=== PATIENT | female | born 1975 | race Caucasian/White ===

== ENCOUNTER → 2017-06-01 | Outpatient (CLI) | payer OTHER ==
[~2017-06-01] MED LIST: ALPR1T PO; AMPH20TA2 PO; BISO5TAB8 PO; ESCI10TA PO; HYDR-3454 PO; OXYC-197 PO; PRD20T PO; TRAM50TA2 PO
--- NOTE | 2017-06-01 18:21 | Diagnostic Imaging Report ---
EXAMINATION: Three views of the cervical spine. INDICATION: Neck pain. FINDINGS: There is reversal of the lordotic curvature in the cervical spine. The vertebral body heights are preserved. There is mild disc height loss at the C4/5 and C5/6 levels. There are mild anterior osteophytes noted at these levels. No significant posterior osteophyte is seen. There is normal alignment of the lateral masses of C1 and C2 suggested on the open-mouth odontoid view on the left. The right lateral masses not well seen. IMPRESSION: Disc degenerative changes at the C5/6 and C6/7 levels. Dictated by: Dictated on workstation # [id number]
== END ==
LOC: RAD 09:29
PROVIDERS: ATTEND Surgery
DX: M54.2 Cervicalgia (principal); M54.5 Low back pain
CPT/HCPCS: 72040

== ENCOUNTER 2017-07-30 13:20 | Inpatient (IN) | payer MEDICAID, OTHER ==
[2017-07-30] VITALS (9 sets, daily range): BP systolic 87–101; BP diastolic 61–70
[~2017-07-30] VITALS: Ht 157.5 cm; Wt 65.2 kg
--- OUTSIDE RECORDS SUMMARY | 2017-07-30 13:25 | XMS REPORT ---
Author Author RAYMOND SIMENTAL [facility] Address [address] [place] [address] Care Team Providers Care Environmental Protection Inspector Name Role Phone RAYMOND SIMENTAL Unavailable PROBLEMS Type Condition ICD9-CM Code [id number] Code Onset Dates Condition Status SNOMED Code Problem Recurrent major depressive disorder, in partial remission F33.41 Active 10373420 Problem Episode of recurrent major depressive disorder, unspecified depression episode severity F33.9 Active 985684982 Problem Attention deficit hyperactivity disorder (ADHD), predominantly inattentive type F90.0 Active 14064181 Problem Adderall use disorder, moderate F15.20 Active 90335438 ALLERGIES Substance Reaction Event Type Date Status N.K.D.A. Unknown Non Drug Allergy Oct, Unknown SOCIAL HISTORY No smoking Hx information available PLAN OF CARE Activity Details Follow Up 4 Weeks Reason:mood disorder VITAL SIGNS Height 62 in 2016-10-31 Weight 149.0 lbs 2016-10-31 Temperature 98.4 degrees Fahrenheit 2016-10-31 Heart Rate 72 bpm 2016-10-31 Respiratory Rate 18 2016-10-31 Oximetry 99 % 2016-10-31 BMI 27.25 kg/m2 2016-10-31 Blood pressure systolic 108 mmHg 2016-10-31 Blood pressure diastolic 74 mmHg 2016-10-31 MEDICATIONS Medication Instructions Dosage Frequency Start Date End Date Duration Status [place] Carbonate 300 MG Orally 2 times a day 1 capsule 12h Oct, 30 day(s) Active Biotene Dry Mouth Care Active Ativan 2 MG Orally Once a day 1 tablet at bedtime as needed 24h Oct, Active Adderall 30 MG Orally Once a day 1 tablet in the morning 24h Active Vitamin E 400 UNIT Orally 3 times a day 1 capsule 8h Active Percocet 5-325 MG Orally 3 times a day 1 tablet as needed 8h Oct, Active Hydrochlorothiazide 25 MG Orally Once a day 1 tablet 24h Active Cymbalta 30 MG Orally Once a day 1 capsule 24h Oct, 07 days Active Cymbalta 60 mg Orally Once a day 1 capsule 24h Oct, 30 day(s) Active Potassium 1 tab Active Vitamin D3 5000 UNIT Orally Once a day 1 tablet 24h Active Vitamin B12 1000 MCG Orally Once a day 1 tablet 24h Active RESULTS No Results PROCEDURES Procedure Date Ordered Related Diagnosis Body Site MEASURE BLOOD OXYGEN LEVEL Oct 31, 2016 Office Visit, Est Pt., Level 3 Oct 31, 2016 IMMUNIZATIONS No Known Immunizations
--- OUTSIDE RECORDS SUMMARY | 2017-07-30 13:25 | XMS REPORT ---
Author Author RITA RICCI [facility] Address [address] [place] [address] Care Team Providers Care Renovator Machine Operator Name Role Phone RITA RICCI Unavailable PROBLEMS Type Condition ICD9-CM Code [id number] Code Onset Dates Condition Status SNOMED Code Problem Recurrent major depressive disorder, in partial remission F33.41 Active 91807576 Problem Episode of recurrent major depressive disorder, unspecified depression episode severity F33.9 Active 201179893 Problem Attention deficit hyperactivity disorder (ADHD), predominantly inattentive type F90.0 Active 97937371 Problem Adderall use disorder, moderate F15.20 Active 98475645 ALLERGIES Unknown Allergies SOCIAL HISTORY No smoking Hx information available PLAN OF CARE VITAL SIGNS MEDICATIONS Unknown Medications RESULTS No Results PROCEDURES Procedure Date Ordered Related Diagnosis Body Site FLUARIX QUAD P-FREE 3 AND UP .50 2015Nov 07, 2016 SINGLE IMMUNIZATION ADMIN Nov 07, 2016 IMMUNIZATIONS Vaccine Route Administration Date Status FLUARIX QUAD P-FREE 3 AND UP .50 2015 IM Intramuscular Nov 07, 2016 Administered
--- OUTSIDE RECORDS SUMMARY | 2017-07-30 13:25 | XMS REPORT ---
Author Author RAYMOND SIMENTAL [facility] Address [address] [place] [address] Care Team Providers Care Pipe Bending Machine Operator Name Role Phone RAYMOND SIMENTAL Unavailable PROBLEMS Type Condition ICD9-CM Code [id number] Code Onset Dates Condition Status SNOMED Code Problem Recurrent major depressive disorder, in partial remission F33.41 Active 60907466 Problem Episode of recurrent major depressive disorder, unspecified depression episode severity F33.9 Active 056780108 Problem Attention deficit hyperactivity disorder (ADHD), predominantly inattentive type F90.0 Active 13395854 Problem Adderall use disorder, moderate F15.20 Active 06804813 ALLERGIES Unknown Allergies SOCIAL HISTORY No smoking Hx information available PLAN OF CARE VITAL SIGNS MEDICATIONS Unknown Medications RESULTS No Results PROCEDURES No Known procedures IMMUNIZATIONS No Known Immunizations
--- OUTSIDE RECORDS SUMMARY | 2017-07-30 13:25 | XMS REPORT ---
Author Author RAYMOND SIMENTAL Organization [facility] Address [address] [place] [address] Care Team Providers Care Final Cigar And Box Examiner Name Role Phone RAYMOND SIMENTAL Unavailable PROBLEMS Type Condition ICD9-CM Code NNT56-CU Code Onset Dates Condition Status SNOMED Code Problem Recurrent major depressive disorder, in partial remission F33.41 Active 69518575 Problem Episode of recurrent major depressive disorder, unspecified depression episode severity F33.9 Active 140118696 Problem Attention deficit hyperactivity disorder (ADHD), predominantly inattentive type F90.0 Active 40085988 Problem Adderall use disorder, moderate F15.20 Active 70785543 ALLERGIES Substance Reaction Event Type Date Status N.K.D.A. Unknown Non Drug Allergy Oct, Unknown SOCIAL HISTORY No smoking Hx information available PLAN OF CARE VITAL SIGNS MEDICATIONS Medication Instructions Dosage Frequency Start Date End Date Duration Status Escitalopram Oxalate 20 MG Orally Once a day 0.5 tablet 24h Active Hydrochlorothiazide 25 MG Orally Once a day 1 tablet 24h Active Potassium 1 tab Active Vitamin D3 5000 UNIT Orally Once a day 1 tablet 24h Active Klonopin 1 MG Orally Twice a day prn 1 tablet Active Vitamin E 400 UNIT Orally Once a day 1 capsule 24h Active Biotene Dry Mouth Care Active Bisoprolol Fumarate 5 MG Orally Once a day 1 tablet 24h Active Vitamin B12 1000 MCG Orally Once a day 1 tablet 24h Active RESULTS No Results PROCEDURES No Known procedures IMMUNIZATIONS No Known Immunizations
--- OUTSIDE RECORDS SUMMARY | 2017-07-30 13:25 | XMS REPORT ---
Author Author RAYMOND SIMENTAL [facility] Address [address] [place] [address] Care Team Providers Care Fender Mechanic Apprentice Name Role Phone RAYMOND SIMENTAL Unavailable PROBLEMS Type Condition ICD9-CM Code [id number] Code Onset Dates Condition Status SNOMED Code Problem Recurrent major depressive disorder, in partial remission F33.41 Active 96322561 Problem Episode of recurrent major depressive disorder, unspecified depression episode severity F33.9 Active 032410325 Problem Attention deficit hyperactivity disorder (ADHD), predominantly inattentive type F90.0 Active 16401667 Problem Adderall use disorder, moderate F15.20 Active 81975929 ALLERGIES Unknown Allergies SOCIAL HISTORY No smoking Hx information available PLAN OF CARE VITAL SIGNS MEDICATIONS Unknown Medications RESULTS No Results PROCEDURES No Known procedures IMMUNIZATIONS No Known Immunizations
--- OUTSIDE RECORDS SUMMARY | 2017-07-30 13:25 | XMS REPORT ---
Author Author RAYMOND SIMENTAL [facility] Address [address] [place] [address] Care Team Providers Care Pipe Organ Tuner And Repairer Name Role Phone RAYMOND SIMENTAL Unavailable PROBLEMS Type Condition ICD9-CM Code [id number] Code Onset Dates Condition Status SNOMED Code Problem Recurrent major depressive disorder, in partial remission F33.41 Active 65075509 Problem Episode of recurrent major depressive disorder, unspecified depression episode severity F33.9 Active 517118479 Problem Attention deficit hyperactivity disorder (ADHD), predominantly inattentive type F90.0 Active 04877337 Problem Adderall use disorder, moderate F15.20 Active 68094857 ALLERGIES Unknown Allergies SOCIAL HISTORY No smoking Hx information available PLAN OF CARE VITAL SIGNS MEDICATIONS Medication Instructions Dosage Frequency Start Date End Date Duration Status Adderall 30 MG Orally 2 times a day 1 tablet 12h 09 Oct, 2016 Active RESULTS No Results PROCEDURES No Known procedures IMMUNIZATIONS No Known Immunizations
--- OUTSIDE RECORDS SUMMARY | 2017-07-30 13:25 | XMS REPORT ---
Author Author RAYMOND SIMENTAL [facility] Address [address] [place] [address] Care Team Providers Care Herpetology Teacher Name Role Phone RAYMOND SIMENTAL Unavailable PROBLEMS Type Condition ICD9-CM Code QOR72-EW Code Onset Dates Condition Status SNOMED Code Problem Recurrent major depressive disorder, in partial remission F33.41 Active 42733853 Problem Episode of recurrent major depressive disorder, unspecified depression episode severity F33.9 Active 983077016 Problem Attention deficit hyperactivity disorder (ADHD), predominantly inattentive type F90.0 Active 83473829 Problem Adderall use disorder, moderate F15.20 Active 61853035 ALLERGIES Unknown Allergies SOCIAL HISTORY No smoking Hx information available PLAN OF CARE VITAL SIGNS MEDICATIONS Medication Instructions Dosage Frequency Start Date End Date Duration Status Percocet 5-325 MG Orally 3 times a day 1 tablet as needed 8h Nov, 28 days Active Ativan 2 MG Orally Once a day 1 tablet at bedtime as needed 24h Oct, 28 days Active RESULTS No Results PROCEDURES No Known procedures IMMUNIZATIONS No Known Immunizations
--- OUTSIDE RECORDS SUMMARY | 2017-07-30 13:25 | XMS REPORT ---
Author Author RAYMOND SIMENTAL [facility] Address [address] [place] [address] Care Team Providers Care Turn Supervisor Name Role Phone RAYMOND SIMENTAL Unavailable PROBLEMS Type Condition ICD9-CM Code [id number] Code Onset Dates Condition Status SNOMED Code Problem Recurrent major depressive disorder, in partial remission F33.41 Active 09510994 Problem Episode of recurrent major depressive disorder, unspecified depression episode severity F33.9 Active 407065107 Problem Attention deficit hyperactivity disorder (ADHD), predominantly inattentive type F90.0 Active 85769503 Problem Adderall use disorder, moderate F15.20 Active 09837356 ALLERGIES No Information SOCIAL HISTORY Never Assessed PLAN OF CARE VITAL SIGNS MEDICATIONS Unknown Medications RESULTS No Results PROCEDURES No Known procedures IMMUNIZATIONS No Known Immunizations MEDICAL (GENERAL) HISTORY Type Description Date Medical History anxiety Medical History depression Medical History bipolar disorder Medical History personality disorder Medical History hypertension Medical History tachycardia Medical History Endometriosis/fibroids Surgical History cholecystectomy Surgical History Left Ulnar repair Surgical History Breast Bx- benign Surgical History tonsillectomy Surgical History Exploratory laparoscopic surgery for endometriosis Hospitalization History [facility]
--- OUTSIDE RECORDS SUMMARY | 2017-07-30 13:25 | XMS REPORT ---
Author Author ARTURO MASON Organization [facility] Address [address] [place] [address] Care Team Providers Care Twisting Machine Operator Name Role Phone MARLON ARTURO Unavailable PROBLEMS Type Condition ICD9-CM Code AZT38-CR Code Onset Dates Condition Status SNOMED Code Problem Recurrent major depressive disorder, in partial remission F33.41 Active 31104507 Problem Episode of recurrent major depressive disorder, unspecified depression episode severity F33.9 Active 987242479 Problem Attention deficit hyperactivity disorder (ADHD), predominantly inattentive type F90.0 Active 24284702 Problem Adderall use disorder, moderate F15.20 Active 20304663 ALLERGIES No Known Allergies SOCIAL HISTORY Never Assessed PLAN OF CARE Activity Details Follow Up 4 Weeks Reason: VITAL SIGNS Height 62 in 2016-12-02 Weight 151.1 lbs 2016-12-02 Heart Rate 118 bpm 2016-12-02 Respiratory Rate 20 2016-12-02 BMI 27.63 kg/m2 2016-12-02 Blood pressure systolic 130 mmHg 2016-12-02 Blood pressure diastolic 90 mmHg 2016-12-02 MEDICATIONS Medication Instructions Dosage Frequency Start Date End Date Duration Status Vitamin E 400 UNIT Orally 3 times a day 1 capsule 8h Active PredniSONE 20 mg Orally Once a day 2 tablets 24h Nov, Nov, 05 days Active Vitamin D3 5000 UNIT Orally Once a day 1 tablet 24h Active Vitamin B12 1000 MCG Orally Once a day 1 tablet 24h Active Adderall 30 MG Orally 2 times a day 1 tablet 12h Oct, Active Rozerem 8 MG Orally Once a day 1 tablet at bedtime as needed 24h Nov, 30 days Active Potassium 1 tab Active [place] Carbonate 300 MG Orally 2 times a day 1 capsule 12h Active Percocet 5-325 MG Orally 3 times a day 1 tablet as needed 8h 07 Nov, 2016 28 days Active Neurontin 100 mg Orally Three times a day 1 capsule 8h Nov, Active Ativan 1 MG Orally Once a day 1 tablet at bedtime as needed 24h Oct, 30 days Active Biotene Dry Mouth Care Active Cymbalta 60 mg Orally Once a day 1 capsule 24h Oct, 30 day(s) Active Belsomra 10 mg Orally Once a day 1 tablet at bedtime as needed 24h Nov, 10 days Active Hydrochlorothiazide 25 MG Orally Once a day 1 tablet 24h Active Trazodone HCl 50 MG Orally Once a day 1 tablet at bedtime as needed 24h Nov, 30 day(s) Active RESULTS No Results PROCEDURES No Known [...] Exploratory laparoscopic surgery for endometriosis Hospitalization History [facility]
--- OUTSIDE RECORDS SUMMARY | 2017-07-30 13:25 | XMS REPORT ---
Author Author EMANI CHAVIRA Organization [facility] Address [address] [place] [address] Care Team Providers Care Paper Sales Manager Name Role Phone EMANI CHAVIRA Unavailable PROBLEMS Type Condition ICD9-CM Code [id number] Code Onset Dates Condition Status SNOMED Code Problem Recurrent major depressive disorder, in partial remission F33.41 Active 63396748 Problem Episode of recurrent major depressive disorder, unspecified depression episode severity F33.9 Active 790314136 Problem Attention deficit hyperactivity disorder (ADHD), predominantly inattentive type F90.0 Active 27050341 Problem Adderall use disorder, moderate F15.20 Active 05484261 ALLERGIES No Information SOCIAL HISTORY Never Assessed PLAN OF CARE Activity Details Follow Up 2 Weeks Reason:depression VITAL SIGNS MEDICATIONS Unknown Medications RESULTS No Results PROCEDURES Procedure Date Ordered Result Body Site Psychotherapy, patient &/family, 30 minutes, established patient Dec 19, 2016 IMMUNIZATIONS No Known Immunizations MEDICAL (GENERAL) HISTORY Type Description Date Medical History anxiety Medical History depression Medical History bipolar disorder Medical History personality disorder Medical History hypertension Medical History tachycardia Medical History Endometriosis/fibroids Surgical History cholecystectomy Surgical History Left Ulnar repair Surgical History Breast Bx- benign Surgical History tonsillectomy Surgical History Exploratory laparoscopic surgery for endometriosis Hospitalization History [facility]
--- OUTSIDE RECORDS SUMMARY | 2017-07-30 13:25 | XMS REPORT ---
Author Author RAYMOND SIMENTAL [facility] Address [address] [place] [address] Care Team Providers Care Pond Scaler Name Role Phone RAYMOND SIMENTAL Unavailable PROBLEMS Type Condition ICD9-CM Code [id number] Code Onset Dates Condition Status SNOMED Code Problem Recurrent major depressive disorder, in partial remission F33.41 Active 14972899 Problem Episode of recurrent major depressive disorder, unspecified depression episode severity F33.9 Active 468456265 Problem Attention deficit hyperactivity disorder (ADHD), predominantly inattentive type F90.0 Active 78699583 Problem Adderall use disorder, moderate F15.20 Active 64801697 ALLERGIES No Information SOCIAL HISTORY Never Assessed PLAN OF CARE VITAL SIGNS MEDICATIONS Medication Instructions Dosage Frequency Start Date End Date Duration Status Adderall 30 MG Orally 2 times a day 1 tablet 12h Nov, Active RESULTS No Results PROCEDURES No Known [...] Exploratory laparoscopic surgery for endometriosis Hospitalization History [facility]
--- OUTSIDE RECORDS SUMMARY | 2017-07-30 13:25 | XMS REPORT ---
Author Author RAYMOND SIMENTAL Organization [facility] Address [address] [place] [address] Care Team Providers Care Grades 1 6 Tutor Name Role Phone RAYMOND SIMENTAL Unavailable PROBLEMS Type Condition ICD9-CM Code [id number] Code Onset Dates Condition Status SNOMED Code Problem Recurrent major depressive disorder, in partial remission F33.41 Active 01933137 Problem Episode of recurrent major depressive disorder, unspecified depression episode severity F33.9 Active 909551618 Problem Attention deficit hyperactivity disorder (ADHD), predominantly inattentive type F90.0 Active 07180686 Problem Adderall use disorder, moderate F15.20 Active 96089702 ALLERGIES Unknown Allergies SOCIAL HISTORY No smoking Hx information available PLAN OF CARE VITAL SIGNS MEDICATIONS Unknown Medications RESULTS Name Result Date Reference Range POTASSIUM 2016-11-14 Potassium, Serum 4.8 3.5-5.2 HEP C ANTIBODY 2016-11-14 Hep C Virus Ab <0.1 0.0-0.9 LITHIUM (ESKALITH(R)), SERUM 2016-11-14 [place] (Eskalith(R)), Serum 0.6 0.6-1.4 VITAMIN D, 25-H 2016-11-14 Vitamin D, 25-Hydroxy 38.3 30.0-100.0 HIV ANTIGEN/ANTIBODY 2016-11-14 HIV Screen 4th Generation wRfx Non Reactive Non Reactive PROCEDURES Procedure Date Ordered Related Diagnosis Body Site LAB NOT BILLED BY [facility] Nov 14, 2016 HIV-1 AG W/HIV-1 & HIV-2 AB Nov 14, 2016 VENIPUNCT, ROUTINE* Nov 14, 2016 IMMUNIZATIONS No Known Immunizations
--- OUTSIDE RECORDS SUMMARY | 2017-07-30 13:25 | XMS REPORT ---
Author Author EMANI CHAVIRA Organization [facility] Address [address] [place] [address] Care Team Providers Care Software Reverse Engineer Name Role Phone EMANI CHAVIRA Unavailable PROBLEMS Type Condition ICD9-CM Code WND15-UT Code Onset Dates Condition Status SNOMED Code Problem Recurrent major depressive disorder, in partial remission F33.41 Active 09976785 Problem Episode of recurrent major depressive disorder, unspecified depression episode severity F33.9 Active 201320290 Problem Attention deficit hyperactivity disorder (ADHD), predominantly inattentive type F90.0 Active 98585661 Problem Adderall use disorder, moderate F15.20 Active 24656753 ALLERGIES No Information SOCIAL HISTORY Never Assessed PLAN OF CARE Activity Details Follow Up Next available Reason:depression VITAL SIGNS MEDICATIONS Unknown Medications RESULTS No Results PROCEDURES Procedure Date Ordered Result Body Site Psychotherapy, patient &/family, 30 minutes, established patient January 02, 2017 IMMUNIZATIONS No Known Immunizations MEDICAL (GENERAL) HISTORY Type Description Date Medical History anxiety Medical History depression Medical History bipolar disorder Medical History personality disorder Medical History hypertension Medical History tachycardia Medical History Endometriosis/fibroids Surgical History cholecystectomy Surgical History Left Ulnar repair Surgical History Breast Bx- benign Surgical History tonsillectomy Surgical History Exploratory laparoscopic surgery for endometriosis Hospitalization History [facility]
--- OUTSIDE RECORDS SUMMARY | 2017-07-30 13:25 | XMS REPORT ---
Author Author EMANI CHAVIRA Organization [facility] Address [address] [place] [address] Care Team Providers Care Ore Dressing Engineer Name Role Phone EMANI CHAVIRA Unavailable PROBLEMS Type Condition ICD9-CM Code [id number] Code Onset Dates Condition Status SNOMED Code Problem Recurrent major depressive disorder, in partial remission F33.41 Active 86177982 Problem Episode of recurrent major depressive disorder, unspecified depression episode severity F33.9 Active 029867868 Problem Attention deficit hyperactivity disorder (ADHD), predominantly inattentive type F90.0 Active 33922531 Problem Adderall use disorder, moderate F15.20 Active 74392452 ALLERGIES Unknown Allergies SOCIAL HISTORY No smoking Hx information available PLAN OF CARE Activity Details Follow Up next available Reason:depresson VITAL SIGNS MEDICATIONS Unknown Medications RESULTS No Results PROCEDURES Procedure Date Ordered Related Diagnosis Body Site Psychotherapy, patient &/family, 30 minutes, established patient Nov 07, 2016 IMMUNIZATIONS No Known Immunizations
--- OUTSIDE RECORDS SUMMARY | 2017-07-30 13:25 | XMS REPORT ---
Author Author EMANI CHAVIRA Organization [facility] Address [address] [place] [address] Care Team Providers Care Repairing Calibrator Name Role Phone EMANI CHAVIRA Unavailable PROBLEMS Type Condition ICD9-CM Code [id number] Code Onset Dates Condition Status SNOMED Code Problem Recurrent major depressive disorder, in partial remission F33.41 Active 44289889 Problem Episode of recurrent major depressive disorder, unspecified depression episode severity F33.9 Active 564224840 Problem Attention deficit hyperactivity disorder (ADHD), predominantly inattentive type F90.0 Active 61639274 Problem Adderall use disorder, moderate F15.20 Active 45526462 ALLERGIES No Information SOCIAL HISTORY Never Assessed PLAN OF CARE Activity Details Follow Up Next available Reason:depression VITAL SIGNS MEDICATIONS Unknown Medications RESULTS No Results PROCEDURES Procedure Date Ordered Result Body Site Psychotherapy, patient &/family, 30 minutes, established patient Dec 01, 2016 IMMUNIZATIONS No Known Immunizations MEDICAL (GENERAL) HISTORY Type Description Date Medical History anxiety Medical History depression Medical History bipolar disorder Medical History personality disorder Medical History hypertension Medical History tachycardia Medical History Endometriosis/fibroids Surgical History cholecystectomy Surgical History Left Ulnar repair Surgical History Breast Bx- benign Surgical History tonsillectomy Surgical History Exploratory laparoscopic surgery for endometriosis Hospitalization History [facility]
--- OUTSIDE RECORDS SUMMARY | 2017-07-30 13:25 | XMS REPORT ---
Author Author YESY EID Organization [employer] Address Unknown Phone Unavailable Care Team Providers Care Websphere Architect Name Role Phone YESY EID Unavailable Allergies No Known Allergies Problems Problem Type Condition Code Onset Dates Condition Status Assessment Visit for TB skin test Z11.1 Active Medications No Known Medications Procedures Procedure Coding System Code Date TB INTRADERMAL TEST CPT-4 11854 Jun 15, 2016 Results No Known Results Summary Purpose [employer] Submission
--- OUTSIDE RECORDS SUMMARY | 2017-07-30 13:25 | XMS REPORT ---
Author Author RAYMOND SIMENTAL [facility] Address [address] [place] [address] Care Team Providers Care Program Research Specialist Name Role Phone RAYMOND SIMENTAL Unavailable PROBLEMS Type Condition ICD9-CM Code [id number] Code Onset Dates Condition Status SNOMED Code Problem Recurrent major depressive disorder, in partial remission F33.41 Active 42177107 Problem Episode of recurrent major depressive disorder, unspecified depression episode severity F33.9 Active 260254985 Problem Attention deficit hyperactivity disorder (ADHD), predominantly inattentive type F90.0 Active 52147931 Problem Adderall use disorder, moderate F15.20 Active 06188619 ALLERGIES No Known Allergies SOCIAL HISTORY Never Assessed PLAN OF CARE Activity Details Follow Up 4 Weeks Reason:neuritis VITAL SIGNS Height 62 in 2016-12-01 Weight 151.1 lbs 2016-12-01 Temperature 98.6 degrees Fahrenheit 2016-12-01 Heart Rate 84 bpm 2016-12-01 Respiratory Rate 20 2016-12-01 BMI 27.63 kg/m2 2016-12-01 Blood pressure systolic 130 mmHg 2016-12-01 Blood pressure diastolic 88 mmHg 2016-12-01 MEDICATIONS Medication Instructions Dosage Frequency Start Date End Date Duration Status Cymbalta 60 mg Orally Once a day 1 capsule 24h Oct, 30 day(s) Active Potassium 1 tab Active Hydrochlorothiazide 25 MG Orally Once a day 1 tablet 24h Active Biotene Dry Mouth Care Active [place] Carbonate 300 MG Orally 2 times a day 1 capsule 12h 30 Active Adderall 30 MG Orally 2 times a day 1 tablet 12h Oct, Active PredniSONE 20 mg Orally Once a day 2 tablets 24h Nov, Nov, 05 days Active Vitamin B12 1000 MCG Orally Once a day 1 tablet 24h Active Vitamin E 400 UNIT Orally 3 times a day 1 capsule 8h Active Ativan 2 MG Orally Once a day 1 tablet at bedtime as needed 24h Oct, 28 days Active Neurontin 100 mg Orally Three times a day 1 capsule 8h Nov, Active Vitamin D3 5000 UNIT Orally Once a day 1 tablet 24h Active Percocet 5-325 MG Orally 3 times a day 1 tablet as needed 8h 07 Nov, 2016 28 days Active RESULTS Name Result Date Reference Range AMERITOX 2016-12-01 PROCEDURES Procedure Date Ordered Result Body Site No Charge Dec 01, 2016 IMMUNIZATIONS No Known Immunizations MEDICAL (GENERAL) HISTORY Type Description Date Medical History anxiety Medical History depression Medical History bipolar disorder Medical History personality disorder Medical History hypertension Medical History tachycardia Medical History Endometriosis/fibroids Surgical History cholecystectomy Surgical History Left Ulnar repair Surgical History Breast Bx- benign Surgical History tonsillectomy Surgical History Exploratory laparoscopic surgery for endometriosis Hospitalization History [facility]
--- OUTSIDE RECORDS SUMMARY | 2017-07-30 13:25 | XMS REPORT ---
Author Author EMANI CHAVIRA Organization [facility] Address [address] [place] [address] Care Team Providers Care Circular Saw Filer Name Role Phone EMANI CHAVIRA Unavailable PROBLEMS Type Condition ICD9-CM Code [id number] Code Onset Dates Condition Status SNOMED Code Problem Recurrent major depressive disorder, in partial remission F33.41 Active 36419996 Problem Episode of recurrent major depressive disorder, unspecified depression episode severity F33.9 Active 240435167 Problem Attention deficit hyperactivity disorder (ADHD), predominantly inattentive type F90.0 Active 35185424 Problem Adderall use disorder, moderate F15.20 Active 75406779 ALLERGIES No Information SOCIAL HISTORY Never Assessed [...]
--- OUTSIDE RECORDS SUMMARY | 2017-07-30 13:26 | XMS REPORT | Continuity of Care Document ---
Author Author [facility] Organization [facility] Address Unknown Phone Unavailable Allergies Active Description Code Type Severity Reaction Onset Reported/Identified Relationship to Patient Clinical Status Yes No Known Drug Allergies [id number] Drug Allergy Unknown N/ A 09/23/2013 Medications Problems Date Dx Coded Attending Type Code Diagnosis Diagnosed By 09/24/2013 ROBERTO SULLIVAN MD Ot 300.00 ANXIETY STATE NOS 09/24/2013 ROBERTO SULLIVAN MD Ot 314.00 ATTN DEFIC NONHYPERACT 09/24/2013 ROBERTO SULLIVAN MD Ot 427.89 CARDIAC DYSRHYTHMIAS NEC 09/24/2013 ROBERTO SULLIVAN MD Ot 724.5 BACKACHE NOS 09/24/2013 ROBERTO SULLIVAN MD Ot 729.2 NEURALGIA/NEURITIS NOS 09/24/2013 ROBERTO SULLIVAN MD Ot 780.2 SYNCOPE AND COLLAPSE 09/24/2013 ROBERTO SULLIVAN MD Ot 780.8 GENERALIZED HYPERHIDROSIS 09/24/2013 ROBERTO SULLIVAN MD Ot 786.01 HYPERVENTILATION 09/24/2013 ROBERTO SULLIVAN MD Ot 786.50 CHEST PAIN NOS 12/23/2013 BRENTON ZAIDI Ot 785.1 PALPITATIONS 08/02/2015 Ot K80.10 CALCULUS OF GALLBLADDER W CHRONIC CHOLEC 08/02/2015 Ot R10.13 EPIGASTRIC PAIN 08/04/2015 JOLIE ALBERT MD Ot K80.10 CALCULUS OF GALLBLADDER W CHRONIC CHOLEC 08/05/2015 Ot 704.00 08/05/2015 Ot 709.09 08/05/2015 JOSE YBARRA MD Ot 724.2 08/05/2015 Ot 785.1 08/05/2015 Ot 704.00 08/05/2015 Ot 709.09 08/05/2015 JOSE YBARRA MD Ot 724.2 08/05/2015 Ot 785.1 03/31/2016 Ot 704.00 ALOPECIA NOS 03/31/2016 Ot 709.09 OTHER DYSCHROMIA 03/31/2016 JOSE YBARRA MD Ot 724.2 LUMBAGO 03/31/2016 Ot 785.1 PALPITATIONS 04/06/2016 GERARDO ALFREDO Ot M25.522 PAIN IN LEFT ELBOW 04/06/2016 GERARDO ALFREDO Ot M54.12 RADICULOPATHY, CERVICAL REGION 04/07/2016 GERARDO ALFREDOP Ot M25.522 PAIN IN LEFT ELBOW 04/07/2016 GERARDO ALFREDO ORTHOPEDIC SHOE MAKER Ot M54.12 RADICULOPATHY, CERVICAL REGION 04/08/2016 GERARDO ALFREDO ORTHOPEDIC SHOE MAKER Ot M25.522 PAIN IN LEFT ELBOW 04/08/2016 GERARDO ALFREDO ORTHOPEDIC SHOE MAKER Ot M54.12 RADICULOPATHY, CERVICAL REGION 07/04/2016 GERARDO ALFREDOP Ot M25.522 PAIN IN LEFT ELBOW 07/04/2016 GERARDO ALFREDOP Ot M54.12 RADICULOPATHY, CERVICAL REGION 06/01/2017 Ot 704.00 ALOPECIA NOS 06/01/2017 Ot 709.09 OTHER DYSCHROMIA 06/01/2017 JOSE YBARRA MD Ot 724.2 LUMBAGO 06/01/2017 Ot 785.1 PALPITATIONS 06/01/2017 GERARDO ALFREDOP Ot M25.522 PAIN IN LEFT ELBOW 06/01/2017 GERARDO ALFREDOP Ot M54.12 RADICULOPATHY, CERVICAL REGION 06/02/2017 ERASMO HOLCOMB MD (DDU) Ot M54.2 CERVICALGIA 06/02/2017 ERASMO HOLCOMB MD (DDU) Ot M54.5 LOW BACK PAIN Procedures Results Encounters ACCT No. Visit Date/Time Discharge Status Pt. Type Provider Facility Loc./Unit Complaint [id number] 06/01/2017 09:29:00 2016 23:59:59 CLS Outpatient ERASMO HOLCOMB MD (JOS) [facility] RAD DDU [id number] 03/31/2016 14:06:00 2015 23:59:59 CLS Outpatient GERARDO ALFREDO [facility] RAD CERVICAL DACULITIS LEFT,LEFT ELBOW PAIN [id number] 08/04/2015 08:24:00 2014 16:55:00 DIS Outpatient BETY BLEVINS, JOLIE Tompkins [facility] SDC CHOLILITHIASIS [id number] 09/30/2013 07:11:00 2013 00:01:00 DIS Outpatient BRENTON ZAIDI [facility] CARD PALPITATIONS [id number] 10/14/2013 08:02:00 2012 23:59:59 CLS Outpatient AMADA BLEVINS, JOSE Campos [facility] RAD LUMBAGO [id number] 09/23/2013 20:37:00 2012 11:23:00 DIS Inpatient LAURIE BLEVINS, ROBERTO Valencia [facility] ICU CHEST PAIN; TACHYCARDIA [id number] 08/05/2015 11:45:00 Document Registration [id number] 12/24/2013 12:30:00 Document Registration [id number] 07/31/2012 13:13:00 Document Registration
--- OUTSIDE RECORDS SUMMARY | 2017-07-30 13:26 | XMS REPORT ---
Author Author EMANI CHAVIRA Organization [facility] Address [address] [place] [address] Care Team Providers Care Air Pollution Analyst Name Role Phone EMANI CHAVIRA Unavailable PROBLEMS Type Condition ICD9-CM Code [id number] Code Onset Dates Condition Status SNOMED Code Problem Recurrent major depressive disorder, in partial remission F33.41 Active 23169622 Problem Episode of recurrent major depressive disorder, unspecified depression episode severity F33.9 Active 694084189 Problem Attention deficit hyperactivity disorder (ADHD), predominantly inattentive type F90.0 Active 11525172 Problem Adderall use disorder, moderate F15.20 Active 30204106 ALLERGIES Unknown Allergies SOCIAL HISTORY No smoking Hx information available PLAN OF CARE Activity Details Follow Up 1 Week Reason:depression VITAL SIGNS MEDICATIONS Unknown Medications RESULTS No Results PROCEDURES Procedure Date Ordered Related Diagnosis Body Site Psychotherapy, patient &/family, 30 minutes, established patient Nov 14, 2016 IMMUNIZATIONS No Known Immunizations
--- OUTSIDE RECORDS SUMMARY | 2017-07-30 13:26 | XMS REPORT ---
Author Author RAYMOND SIMENTAL [facility] Address [address] [place] [address] Care Team Providers Care Section Cutter Name Role Phone RAYMOND SIMENTAL Unavailable PROBLEMS Type Condition ICD9-CM Code [id number] Code Onset Dates Condition Status SNOMED Code Problem Recurrent major depressive disorder, in partial remission F33.41 Active 10300847 Problem Episode of recurrent major depressive disorder, unspecified depression episode severity F33.9 Active 557473494 Problem Attention deficit hyperactivity disorder (ADHD), predominantly inattentive type F90.0 Active 21408297 Problem Adderall use disorder, moderate F15.20 Active 31753250 ALLERGIES Unknown Allergies SOCIAL HISTORY No smoking Hx information available PLAN OF CARE VITAL SIGNS MEDICATIONS Unknown Medications RESULTS No Results PROCEDURES No Known procedures IMMUNIZATIONS No Known Immunizations
--- OUTSIDE RECORDS SUMMARY | 2017-07-30 13:26 | XMS REPORT ---
Author Author ARTURO MASON Organization [facility] Address [address] [place] [address] Care Team Providers Care Marine Habitat Resource Specialist Name Role Phone ARTURO MASON Unavailable PROBLEMS Type Condition ICD9-CM Code YTH77-UK Code Onset Dates Condition Status SNOMED Code Problem Recurrent major depressive disorder, in partial remission F33.41 Active 65562258 Problem Episode of recurrent major depressive disorder, unspecified depression episode severity F33.9 Active 739410872 Problem Attention deficit hyperactivity disorder (ADHD), predominantly inattentive type F90.0 Active 48143111 Problem Adderall use disorder, moderate F15.20 Active 89667590 ALLERGIES No Information SOCIAL HISTORY Never Assessed [...] Exploratory laparoscopic surgery for endometriosis Hospitalization History [facility]
--- OUTSIDE RECORDS SUMMARY | 2017-07-30 13:26 | XMS REPORT ---
Author Author RAYMOND SIMENTAL Organization [facility] Address [address] [place] [address] Care Team Providers Care Clinical Research Monitor Name Role Phone KAMILLE RAYMOND Unavailable PROBLEMS Type Condition ICD9-CM Code BSZ03-EP Code Onset Dates Condition Status SNOMED Code Problem Recurrent major depressive disorder, in partial remission F33.41 Active 19771354 Problem Episode of recurrent major depressive disorder, unspecified depression episode severity F33.9 Active 953673439 Problem Attention deficit hyperactivity disorder (ADHD), predominantly inattentive type F90.0 Active 44593796 Problem Adderall use disorder, moderate F15.20 Active 45855908 ALLERGIES No Information SOCIAL HISTORY Never Assessed PLAN OF CARE VITAL SIGNS MEDICATIONS Medication Instructions Dosage Frequency Start Date End Date Duration Status Ativan 1 MG Orally Once a day 1 tablet at bedtime as needed 24h Oct, 28 days Active Percocet 5-325 MG Orally 3 times a day 1 tablet as needed 8h Dec, 28 days Active RESULTS No Results PROCEDURES [...] Exploratory laparoscopic surgery for endometriosis Hospitalization History [facility]
[2017-07-30] MEDS ORDERED: NS IV 1000 ML 1,000 ML ONE (13:50)
--- NOTE | 2017-07-30 14:25 | ED Psychosocial ---
General Chief Complaint: Overdose Stated Complaint: OVERDOSE Nursing Triage Note: PT TO ED VIA WHEELCHAIR WITH FRIEND. PT STATES SHE TOOK 20-30 CLONAPIN AND UNKNOWN AMOUNT OF GABAPENTIN. PT FRIEND STATES PT RECENTLY GOT HER KIDS TAKEN AWAY AND IS GETTING HER HOUSE TAKEN AWAY. PT STATES SHE WAS TRYING TO KILL HERSELF. Source: patient Exam Limitations: no limitations History of Present Illness Time seen by provider: 14:20 Initial Comments The patient is a 41-year-old white female. She apparently intentionally overdosed and is unable to give any history. The lady who accompanies her is the cousin of the patient's . They apparently were only recently . She states that she believes the patient intended to injure herself. She apparently has lost custody of her children and is about to lose her residence as well. She is thought to have taken a goodly number of clonazepam plus gabapentin. She however has multiple other psych medicines that may have been involved. Her medications also had aspirin included in the pill bottle Timing/Duration: just prior to arrival Severity: moderate Associated Symptoms: ingestion Allergies and Home Medications Allergies Coded Allergies: No Known Drug Allergies (Unverified , 09/23/13) Home Medications Alprazolam 1 Mg Tablet, 1 MG PO TID, #90 (Reported) Amphet Asp/Amphet/D-Amphet 20 Mg Tablet, 20 MG PO TID, (Reported) Bisoprolol Fumarate 5 Mg Tablet, 5 MG PO DAILY, #30 Ref 5 Prescribed by: MERCED BARRERA on 09/24/13 1110 Escitalopram Oxalate 10 Mg Tablet, 10 MG PO DAILY, (Reported) Hydrocodone/Acetaminophen 1 Each Tablet, 1-2 EACH PO Q4 - 6H, #30 Prescribed by: JUANJOSE HERNANDEZ on 08/04/15 1342 Tramadol HCl 50 Mg Tablet, 50 MG PO Q6H, (Reported) Constitutional: see HPI, other (poorly able to answer questions) EENTM: no symptoms reported Respiratory: no symptoms reported Cardiovascular: no symptoms reported Gastrointestinal: no symptoms reported Musculoskeletal: no symptoms reported Skin: no symptoms reported Psychiatric/Neurological: No Symptoms Reported Past Hjqqglq-Yvwlqw-Yvgesc Hx Patient Social History Alcohol Use: Denies Use Recreational Drug Use: No Smoking Status: Unknown if Ever Smoked 2nd Hand Smoke Exposure: No Recent Foreign Travel: No Contact w/Someone Who Travel: No Recent Infectious Disease Expo: No Recent Hopitalizations: No Physical Abuse: No Sexual Abuse: No Immunizations Up To Date Tetanus Booster (TDap): More than 5yrs PED Vaccines UTD: No Date of Influenza Vaccine: Aug 23, 2013 Surgeries History of Surgeries: Yes (ULNAR NERVE, BREAST BIOPSY) Respiratory History of Respiratory Disorde: Yes Respiratory Disorders: Asthma Cardiovascular History of Cardiac Disorders: Yes Cardiac Disorders: Hypertension, Irregular Heartbeat Neurological History of Neurological Disord: No Reproductive System Hx Reproductive Disorders: No Gastrointestinal History of Gastrointestinal Di: No Musculoskeletal History of Musculoskeletal Dis: Yes Musculoskeletal Disorders: Chronic Back Pain Endocrine History of Endocrine Disorders: No Cancer History of Cancer: No Psychosocial History of Psychiatric Problem: Yes Behavioral Health Disorders: Anxiety, Depression Suicide Risk Score: 7 Integumentary History of Skin or Integumenta: No Blood Transfusions History of Blood Disorders: No Adverse Reaction to a Blood Tr: No Family Medical History Family Medial History: Family history: Cardiovascular disease 03 FATHER (55 ) Family history: Hypertension 03 FATHER, Onset:55 Heart disease 03 FATHER, Onset:55 History of - respiratory disease 03 FATHER, Onset:50 Hypercholesterolemia 03 FATHER, Onset:55 No Family History of: Abdominal aortic aneurysm Andrade's disease Alcoholism Aphasia Cancer Cancer of colon Cataract Chest pain Congenital heart disease Congestive heart failure Cystic fibrosis Dementia Dysphagia Family history: Allergy Family history: Alzheimer's disease Family history: Arthritis Family history: Asthma Family history: Breast disease Family history: Coronary thrombosis Family history: Diabetes mellitus Family history: Gastrointestinal disease Family history: Glaucoma Family history: Osteoporosis Family history: Thyroid disorder Headache Hearing loss Hereditary disease History of - anemia History of - disorder History of drug abuse Human immunodeficiency virus (HIV) seropositivity Infertile Kidney disease Malignant neoplasm of lung Myocardial infarction Parkinson's disease Prostate cancer Psychotic disorder Seizure disorder Stroke Tuberculosis Visual impairment Physical Exam Vital Signs Vital Sign - Last 12Hours 07/30/17 13:32 Pulse 59 Resp 12 B/P (MAP) 116/68 Pulse Ox 99 O2 Delivery Room Air Capillary Refill : Less Than 3 Seconds General Appearance: other (deep nasal malignant) HEENT: normal ENT inspection Neck: full range of motion Respiratory: chest non-tender, lungs clear, normal breath sounds, no respiratory distress, no accessory muscle use, respiratory distress Cardiovascular: normal peripheral pulses, regular rate, rhythm, no edema, no gallop, no JVD, no murmur Gastrointestinal: normal bowel sounds, non tender, soft, no organomegaly, no pulsatile mass Extremities: normal range of motion, non-tender, normal inspection, no pedal edema, no calf tenderness, normal capillary refill, pelvis stable Neurologic/Psychiatric: supervisor tree fruit and nut farming II-XII nml as tested, no motor/sensory deficits, alert, normal mood/affect, oriented x 3, abnormal cerebellar tests, abnormal supervisor tree fruit and nut farming II-XII Skin: normal color, warm/dry Lymphatic: no adenopathy Progress/Results/Core Measures Results/Orders Lab Results Laboratory Tests Test 07/30/17 13:40 07/30/17 13:50 Range/Units Urine Color YELLOW Urine Clarity VERY CLOUDY H Urine pH 7 5-9 Urine Specific [place] 1.015 L 1.016-1.022 Urine Protein NEGATIVE NEGATIVE Urine Glucose (UA) NEGATIVE NEGATIVE Urine Ketones NEGATIVE NEGATIVE Urine Nitrite NEGATIVE NEGATIVE Urine Bilirubin NEGATIVE NEGATIVE Urine Urobilinogen NORMAL NORMAL MG/DL Urine Leukocyte Esterase NEGATIVE NEGATIVE Urine RBC (Auto) NEGATIVE NEGATIVE Urine RBC NONE /HPF Urine WBC NONE /HPF Urine Squamous Epithelial Cells 5-10 /HPF Urine Crystals NONE /LPF Urine Amorphous Sediment LARGE POLO URATES H /LPF Urine Bacteria NEGATIVE /HPF Urine Casts NONE /LPF Urine Mucus NEGATIVE /LPF Urine Culture Indicated NO Urine Opiates Screen NEGATIVE NEGATIVE Urine Oxycodone Screen NEGATIVE NEGATIVE Urine Methadone Screen NEGATIVE NEGATIVE Urine Propoxyphene Screen NEGATIVE NEGATIVE Urine Barbiturates Screen NEGATIVE NEGATIVE Ur Tricyclic Antidepressants Screen NEGATIVE NEGATIVE Urine Phencyclidine Screen NEGATIVE NEGATIVE Urine Amphetamines Screen POSITIVE H NEGATIVE Urine Methamphetamines Screen NEGATIVE NEGATIVE Urine Benzodiazepines Screen POSITIVE H NEGATIVE Urine Cocaine Screen NEGATIVE NEGATIVE Urine Cannabinoids Screen NEGATIVE NEGATIVE White Blood Count 5.0 4.3-11.0 10^3/uL Red Blood Count 4.41 4.35-5.85 10^6/uL Hemoglobin 12.8 11.5-16.0 G/DL Hematocrit 40 35-52 % Mean Corpuscular Volume 90 80-99 FL Mean Corpuscular Hemoglobin 29 25-34 PG Mean Corpuscular Hemoglobin Concent 32 32-36 G/DL Red Cell Distribution Width 13.5 10.0-14.5 % Platelet Count 291 130-400 10^3/uL Mean Platelet Volume 10.7 H 7.4-10.4 FL Neutrophils (%) (Auto) 57 42-75 % Lymphocytes (%) (Auto) 31 12-44 % Monocytes (%) (Auto) 9 0-12 % Eosinophils (%) (Auto) 2 0-10 % Basophils (%) (Auto) 1 0-10 % Neutrophils # (Auto) 2.9 1.8-7.8 X 10^3 Lymphocytes # (Auto) 1.5 1.0-4.0 X 10^3 Monocytes # (Auto) 0.4 0.0-1.0 X 10^3 Eosinophils # (Auto) 0.1 0.0-0.3 10^3/uL Basophils # (Auto) 0.1 0.0-0.1 10^3/uL Sodium Level 139 135-145 MMOL/L Potassium Level 4.1 3.6-5.0 MMOL/L Chloride Level 106 98-107 MMOL/L Carbon Dioxide Level 27 21-32 MMOL/L Anion Gap 6 5-14 MMOL/L Blood Urea Nitrogen 10 7-18 MG/DL Creatinine 0.91 0.60-1.30 MG/DL Estimat Glomerular Filtration Rate > 60 BUN/Creatinine Ratio 11 Glucose Level 89 70-105 MG/DL Calcium Level 8.9 8.5-10.1 MG/DL Total Bilirubin 0.3 0.1-1.0 MG/DL Aspartate Amino Transf (AST/SGOT) 13 5-34 U/L Alanine Aminotransferase (ALT/SGPT) 11 0-55 U/L Alkaline Phosphatase 62 40-136 U/L Total Protein 6.4 6.4-8.2 GM/DL Albumin 3.7 3.2-4.5 GM/DL Salicylates Level < 5.0 L 5.0-20.0 MG/DL Acetaminophen Level < 10 L 10-30 UG/ML Serum Alcohol < 10 <10 MG/DL My Orders Orders - ANTOLIN CABRAL MD Ns Iv 1000 Ml (Sodium Chloride 0.9%) (07/30/17 13:50) Acetaminophen (07/30/17 14:17) Alcohol (07/30/17 14:17) Cbc With Automated Diff (07/30/17 14:17) Comprehensive Metabolic Panel (07/30/17 14:17) Drug Screen Stat (Urine) (07/30/17 14:17) [place] Level (07/30/17 14:17) Salicylate (07/30/17 14:17) Ua Culture If Indicated (07/30/17 14:17) Flumazenil Injection (Romazecon Injectio (07/30/17 14:30) Medications Given in ED Current Medications Medications Dose Ordered Sig/Francisco J Route Start Time Stop Time Status Last Admin Dose Admin Flumazenil 0.1 mg ONCE ONCE IV 07/30/17 14:30 07/30/17 14:31 DC 07/30/17 14:31 0.1 MG Sodium Chloride 1,000 ml @ ud STK-MED ONCE .ROUTE 07/30/17 13:50 07/30/17 13:59 DC 07/30/17 14:00 0 MLS/HR Vital Signs/I&O Vital Sign - Last 12Hours 07/30/17 13:32 Pulse 59 Resp 12 B/P (MAP) 116/68 Pulse Ox 99 O2 Delivery Room Air Blood Pressure Mean: 84 Departure Communication (Admissions) Progress Notes 1504 the patient awakened rather remarkably with 0.1 milligrams of Romazicon. She will be admitted to the ICU for support of vital functions while metabolizing medications. Impression Impression: Primary Impression: suicide attempt/intentional overdose Disposition: ADMITTED INPATIENT Condition: Stable/Unchanged Admissions Decision to Admit Reason: Admit from ER (General) Decision to Admit/Date: Jul 30, 2017 Time/Decision to Admit Time: 15:05 Departure-Patient Inst. Referrals: NO,LOCAL PHYSICIAN (PCP/Family) Primary Care Physician Patient Instructions: ALCOHOL AND SUBSTANCE ABUSE ANTOLIN CABRAL MD Jul 30, 2017 14:25
[2017-07-30] MEDS ORDERED: FLUMAZENIL (ROMAZICON) 0.1 MG/ML 5 ML VIAL IV ONE (14:30)
[2017-07-30 14:36] LABS: BILIRUBIN,URINE NEGATIVE (NEGATIVE); KETONES,URINE NEGATIVE (NEGATIVE); LEUKOCYTE ESTERASE ,URINE NEGATIVE (NEGATIVE); NITRITE,URINE NEGATIVE (NEGATIVE); PH,URINE 7 (5-9); PROTEIN,URINE NEGATIVE (NEGATIVE); UROBILINOGEN,URINE NORMAL (NORMAL)
[2017-07-30 14:38] LABS: BASOPHILS # (AUTO) 0.1 10^3/uL (0.0-0.1); BASOPHILS % (AUTO) 1 % (0-10); EOSINOPHILS # (AUTO) 0.1 10^3/uL (0.0-0.3); EOSINOPHILS % (AUTO) 2 % (0-10); LYMPHOCYTES # (AUTO) 1.5 X 10^3 (1.0-4.0); LYMPHOCYTES % (AUTO) 31 % (12-44); MEAN CORPUSCULAR HEMOGLOBIN 29 PG (25-34); MEAN CORPUSCULAR HGB CONC 32 G/DL (32-36); MEAN CORPUSCULAR VOLUME 90 FL (80-99); MEAN PLATELET VOLUME 10.7 FL (7.4-10.4); MONOCYTES # (AUTO) 0.4 X 10^3 (0.0-1.0); MONOCYTES % (AUTO) 9 % (0-12); NEUTROPHILS # (AUTO) 2.9 X 10^3 (1.8-7.8); NEUTROPHILS % (AUTO) 57 % (42-75); PLATELET COUNT 291 10^3/uL (130-400); RED BLOOD COUNT 4.41 10^6/uL (4.35-5.85); RED CELL DISTRIBUTION WIDTH 13.5 % (10.0-14.5)
[2017-07-30 14:51] LABS: ALANINE AMINOTRANSFERASE 11 U/L (0-55); ALBUMIN 3.7 GM/DL (3.2-4.5); ALCOHOL < 10 MG/DL (<10); ANION GAP 6 MMOL/L (5-14); ASPARTATE AMINO TRANSFERASE 13 U/L (5-34); BILIRUBIN,TOTAL 0.3 MG/DL (0.1-1.0); BLOOD UREA NITROGEN 10 MG/DL (7-18); BUN/CREATININE RATIO 11; CALCIUM 8.9 MG/DL (8.5-10.1); CARBON DIOXIDE 27 MMOL/L (21-32); CHLORIDE 106 MMOL/L (98-107); CREATININE SERUM 0.91 MG/DL (0.60-1.30); GFR ESTIMATED > 60; GLUCOSE 89 MG/DL (70-105); POTASSIUM 4.1 MMOL/L (3.6-5.0); SALICYLATE < 5.0 MG/DL (5.0-20.0); SODIUM 139 MMOL/L (135-145); TOTAL PROTEIN 6.4 GM/DL (6.4-8.2)
[2017-07-30 14:57] LABS: ACETAMINOPHEN < 10 UG/ML (10-30)
--- OUTSIDE RECORDS SUMMARY | 2017-07-30 15:20 | XMS REPORT | Continuity of Care Document ---
Author Author [facility] Organization [facility] Address Unknown Phone Unavailable Allergies Active Description Code Type Severity Reaction Onset Reported/Identified Relationship to Patient Clinical Status Yes No Known Drug Allergies [id number] Drug Allergy Unknown N/ A 09/23/2013 Medications [...] PAIN IN LEFT ELBOW 04/07/2016 GERARDO ALFREDO MANAGER BANKING Ot M54.12 RADICULOPATHY, CERVICAL REGION 04/08/2016 GERARDO ALFREDO MANAGER BANKING Ot M25.522 PAIN IN LEFT ELBOW 04/08/2016 GERARDO ALFREDO MANAGER BANKING Ot M54.12 RADICULOPATHY, CERVICAL REGION 07/04/2016 GERARDO [...] Status Pt. Type Provider Facility Loc./Unit Complaint [id number] 06/01/2017 09:29:00 2016 23:59:59 CLS Outpatient ERASMO HOLCOMB MD (JOS) [facility] RAD DDU [id number] 03/31/2016 14:06:00 2015 23:59:59 CLS Outpatient GERARDO ALFREDO [facility] RAD CERVICAL DACULITIS LEFT,LEFT ELBOW PAIN [id number] 08/04/2015 08:24:00 2014 16:55:00 DIS Outpatient BETY BLEVINS, JOLIE Tompkins [facility] SDC CHOLILITHIASIS [id number] 09/30/2013 07:11:00 2013 00:01:00 DIS Outpatient BRENTON ZAIDI [facility] CARD PALPITATIONS [id number] 10/14/2013 08:02:00 2012 23:59:59 CLS Outpatient AMADA BLEVINS, JOSE Campos [facility] RAD LUMBAGO [id number] 09/23/2013 20:37:00 2012 11:23:00 DIS Inpatient LAURIE BLEVINS, ROBERTO Valencia [facility] ICU CHEST PAIN; TACHYCARDIA [id number] 08/05/2015 11:45:00 Document Registration [id number] 12/24/2013 12:30:00 Document Registration [id number] 07/31/2012 13:13:00 Document Registration
--- NOTE | 2017-07-30 15:52 | Progress Note-Hospitalist ---
Subjective HPI/CC On Admission Date Seen by Provider: Jul 30, 2017 Time Seen by Provider: 15:15 Objective Exam Vital Signs Vital Sign - Last 12Hours 07/30/17 13:32 Pulse 59 Resp 12 B/P (MAP) 116/68 Pulse Ox 99 O2 Delivery Room Air Capillary Refill : Less Than 3 Seconds General Appearance: No Apparent Distress, WD/WN HEENT: PERRL/EOMI, Moist Mucous Membranes Neck: Normal Inspection, Supple Respiratory: Lungs Clear, Normal Breath Sounds, No Accessory Muscle Use, No Respiratory Distress Cardiovascular: Regular Rate, Rhythm, No Murmur, Normal Peripheral Pulses Gastrointestinal: Normal Bowel Sounds, Non Tender, Soft Extremity: Normal Capillary Refill, Non Tender, No Calf Tenderness, No Pedal Edema Neurologic/Psychiatric: Oriented x3, Other (drowsy but easily arousible) Skin: Normal Color, Warm/Dry Results/Procedures Lab Laboratory Tests 07/30/17 13:50 Assessment/Plan Assessment and Plan Assess & Plan/Chief Complaint Intentional Overdose Diagnosis/Problems Diagnosis/Problems (1) Overdose of benzodiazepine Status: Acute Assessment & Plan: Reports around 20 Klonopin and unsure of other medication Per ER note concern for gabapentin overdose as well Currently protectin airway, sleepy but arouses for verbal stimuli Will monitor in ICU overnight ER discussed with poison control who recommended monitoring for ~24 hours and flumazenil prn extreme drowsiness Consult Behavior Health Qualifiers: Qualified Codes: T42.4X2A - Poisoning by benzodiazepines, intentional self- harm, initial encounter (2) Methamphetamine abuse Assessment & Plan: UDS positive for amphetamines Denies any prescription use WIll discussed cessation when more alert (3) Major depression Status: Acute Assessment & Plan: Behavior consulted She reports possible Bipolar disorder history as well Will likely need inpatient psych at [place] and initiation of mood stabilizers if that's diagnosis Would be very hesitant to start lithium given impulsivity and recurrent overdoses Qualifiers: (4) Prophylactic measure Assessment & Plan: NS @ 100cc/hr NPO until more alert NESSA Allen MD Jul 30, 2017 15:52
--- NOTE | 2017-07-30 16:05 | History & Physical-Hospitalist ---
HPI History of Present Illness: HPI/Chief Complaint CC: Overdose HPI: Pt is a 41yoCF with a PMH of bipolar disorder, depression, anxiety and ADD who presented to the ER today after an overdose. She was very drowsy during exam so history somewhat limited. She states she got in a fight with her and then decided to take a bunch of pills to "sleep for a while." Per record review she reported to ER staff she was trying to kill herself but to me she denies SI. She is unsure of what she took. She thinks she took 20 Klonopin and then a few other pills from some bottles in the house. Known of these medicines are hers. She states she takes no medicine. She reports a previous suicide attempt following her divorce by similar mechanism. She otherwise was unable to provide any other history. Date Seen 07/30/17 Time Seen by Provider: 15:15 Attending Physician Nessa Mittal MD PCP No,Local Physician Referring Physician Date of Admission Jul 30, 2017 at 15:05 Home Medications & Allergies Home Medications Reviewed patient Home Medication Reconciliation Form Allergies Allergies Coded Allergies No Known Drug Allergies (Owusspsbuj30/2/13) Past Ydtptpg-Gsmgel-Voddxf Hx Patient Social History Marrital Status: Alcohol Use: Denies Use Recreational Drug Use: Yes Smoking Status: Unknown if Ever Smoked 2nd Hand Smoke Exposure: No Recent Foreign Travel: No Contact w/other who traveled: No Recent Hopitalizations: No Recent Infectious Disease Expo: No Immunizations Up To Date Tetanus Booster (TDap): More than 5yrs Pediatric: No Date of Influenza Vaccine: Aug 23, 2013 Surgeries Yes (ULNAR NERVE, BREAST BIOPSY) Tonsillectomy Respiratory No Cardiovascular Yes Hypertension, Irregular Heartbeat Neurological No Reproductive System Hx Reproductive Disorders: No Gastrointestinal No Musculoskeletal Yes Chronic Back Pain Endocrine History of Endocrine Disorders: No HEENT History of HEENT Disorders: No Cancer No Psychosocial History of Psychiatric Problem: Yes Behavioral Health Disorders: ADD/ADHD, Anxiety, Suicide Attempts, Depression Integumentary History of Skin or Integumenta: No Blood Transfusions History of Blood Disorders: No Adverse Reaction to a Blood Tr: No Family Medical History Family Hx: Family history: Cardiovascular disease 03 FATHER (55 ) Family history: Hypertension 03 FATHER, Onset:55 Heart disease 03 FATHER, Onset:55 History of - respiratory disease 03 FATHER, Onset:50 Hypercholesterolemia 03 FATHER, Onset:55 No Family History of: Abdominal aortic aneurysm [place]'s disease Alcoholism Aphasia Cancer Cancer of colon Cataract Chest pain Congenital heart disease Congestive heart failure Cystic fibrosis Dementia Dysphagia Family history: Allergy Family history: Alzheimer's disease Family history: Arthritis Family history: Asthma Family history: Breast disease Family history: Coronary thrombosis Family history: Diabetes mellitus Family history: Gastrointestinal disease Family history: Glaucoma Family history: Osteoporosis Family history: Thyroid disorder Headache Hearing loss Hereditary disease History of - anemia History of - disorder History of drug abuse Human immunodeficiency virus (HIV) seropositivity Infertile Kidney disease Malignant neoplasm of lung Myocardial infarction Parkinson's disease Prostate cancer Psychotic disorder Seizure disorder Stroke Tuberculosis Visual impairment Review of Systems Constitutional: No fever EENTM: no symptoms reported Respiratory: no symptoms reported, No cough, No dyspnea on exertion, No short of breath Cardiovascular: no symptoms reported Gastrointestinal: No abdominal pain, No nausea, No vomiting Genitourinary: no symptoms reported Musculoskeletal: back pain Skin: no symptoms reported Psychiatric/Neurological: Depressed, Emotional Problems Physical Exam Physical Exam Vital Signs Vital Sign - Last 12Hours 07/30/17 07/30/17 13:32 15:40 Temp 97.8 Pulse 59 Resp 12 B/P (MAP) 116/68 Pulse Ox 99 O2 Delivery Room Air Capillary Refill : Less Than 3 Seconds General Appearance: WD/WN, Other (sleepy) HEENT: PERRL/EOMI, Moist Mucous Membranes Neck: Normal Inspection, Supple Respiratory: Lungs Clear, Normal Breath Sounds, No Accessory Muscle Use, No Respiratory Distress Cardiovascular: Regular Rate, Rhythm, No Murmur Gastrointestinal: Normal Bowel Sounds, Non Tender, Soft Extremity: Normal Capillary Refill, No Calf Tenderness, No Pedal Edema Neurologic/Psychiatric: Other (drowsy but arouses easily to verbal stimuli, oriented to place and location and person) Skin: Normal Color, Warm/Dry Results Results/Procedures Lab Laboratory Tests 07/30/17 13:50 07/31/17 04:15 Assessment/Plan Admission Diagnosis Intentional Overdose Assessment and Plan Intentional Overdose Diagnosis/Problems Diagnosis/Problems (1) Overdose of benzodiazepine Status: Acute Assessment & Plan: Reports around 20 Klonopin and unsure of other medication Per ER note concern for gabapentin overdose as well Currently protectin airway, sleepy but arouses for verbal stimuli Will monitor in ICU overnight ER discussed with poison control who recommended monitoring for ~24 hours and flumazenil prn extreme drowsiness Responded well to Flumazenil in ER Consult Behavior Health Qualifiers: Qualified Codes: T42.4X2A - Poisoning by benzodiazepines, intentional self- harm, initial encounter (2) Methamphetamine abuse Assessment & Plan: UDS positive for amphetamines Denies any prescription use WIll discussed cessation when more alert (3) Major depression Status: Acute Assessment & Plan: Behavior consulted She reports possible Bipolar disorder history as well Will call Mental Health for evaluation for psych at [place] if needed and initiation of mood stabilizers if that's diagnosis Would be very hesitant to start lithium given impulsivity Qualifiers: (4) Prophylactic measure Assessment & Plan: NS @ 100cc/hr NPO until more alert NESSA Allen MD Jul 30, 2017 4:05 pm
[2017-07-30] MEDS ORDERED: FLUMAZENIL (ROMAZICON) 0.1 MG/ML 5 ML VIAL IV PRN (17:45)
[2017-07-30] MEDS: NS IV 1000 ML 1,000 ML IV SCH (18:00)
[2017-07-31] VITALS (10 sets, daily range): BP systolic 94–109; BP diastolic 62–73
[2017-07-31] MEDS: NS IV 1000 ML 1,000 ML IV SCH (04:18)
[2017-07-31 04:43] LABS: BASOPHILS # (AUTO) 0.1 10^3/uL (0.0-0.1); BASOPHILS % (AUTO) 1 % (0-10); EOSINOPHILS # (AUTO) 0.2 10^3/uL (0.0-0.3); EOSINOPHILS % (AUTO) 3 % (0-10); LYMPHOCYTES # (AUTO) 2.2 X 10^3 (1.0-4.0); LYMPHOCYTES % (AUTO) 42 % (12-44); MEAN CORPUSCULAR HEMOGLOBIN 28 PG (25-34); MEAN CORPUSCULAR HGB CONC 31 G/DL (32-36); MEAN CORPUSCULAR VOLUME 92 FL (80-99); MONOCYTES # (AUTO) 0.3 X 10^3 (0.0-1.0); MONOCYTES % (AUTO) 6 % (0-12); NEUTROPHILS # (AUTO) 2.5 X 10^3 (1.8-7.8); NEUTROPHILS % (AUTO) 48 % (42-75); PLATELET COUNT 287 10^3/uL (130-400); WHITE BLOOD COUNT 5.2 10^3/uL (4.3-11.0)
[2017-07-31 05:07] LABS: ANION GAP 7 MMOL/L (5-14); BLOOD UREA NITROGEN 8 MG/DL (7-18); BUN/CREATININE RATIO 8; CALCIUM 8.7 MG/DL (8.5-10.1); CARBON DIOXIDE 26 MMOL/L (21-32); CHLORIDE 106 MMOL/L (98-107); CREATININE SERUM 0.98 MG/DL (0.60-1.30); GFR ESTIMATED > 60; GLUCOSE 76 MG/DL (70-105); MAGNESIUM 2.4 MG/DL (1.8-2.4); PHOSPHORUS 3.5 MG/DL (2.3-4.7); POTASSIUM 3.9 MMOL/L (3.6-5.0); SODIUM 139 MMOL/L (135-145)
[2017-07-31] MEDS ORDERED: INFLUENZA TRIvalent 2017-2018 0.5 ML/45 MCG SYR IM ONE (07:00)
--- NOTE | 2017-07-31 11:38 | Discharge Summary-Hospitalist ---
Diagnosis/Chief Complaint Date of Admission Jul 30, 2017 at 3:05 pm Date of Discharge Discharge Date: Jul 31, 2017 Admission Diagnosis Intentional Overdose Discharge Diagnosis Intentional Overdose (1) Overdose of benzodiazepine Status: Acute Assessment & Plan: Reports around 20 Klonopin and unsure of other medication Much more alert than yesterday, needed no further doses of Flumazenil Today she reports she remembers more of yesterday morning and her intention was to sleep for awhile because she was stressed from a fight with her and possible eviction vincent this month Consult Behavior Health She was evaluated by their provider who has set up a care plan and safety plan for patient Patient vehemently denies any suicidal ideation at this time and maintains as she did yesterday to me that this was not a suicide attempt Will discharge home with assistance from [facility] for care plan and follow up and strict return precautions for any thoughts of self harm (2) Methamphetamine abuse Assessment & Plan: UDS positive for amphetamines Denies any prescription use or IVDU [facility] has provided resources for drug abuse as well (3) Major depression Status: Acute Assessment & Plan: Behavior consulted She reports possible Bipolar disorder history as well Would be very hesitant to start lithium given impulsivity (4) Prophylactic measure Assessment & Plan: Regular Diet Lovenox Discharge Summary Discharge Physical Examination Allergies: Coded Allergies: No Known Drug Allergies (Unverified , 09/23/13) Vitals & I&Os Vital Signs Date Time Temp Pulse Resp B/P (MAP) Pulse Ox O2 Delivery O2 Flow Rate FiO2 07/31/17 08:00 75 15 104/73 99 Room Air 07/31/17 04:00 96.4 Hospital Course Ms Morrison is a 41yoCF who presented to the ER after an intentional overdose on Klonopin. There was original report that she may have had suicidal ideation and this was an attempt at her life but she has since denied this to me during multiple interviews. She report desire to sleep as she is under a lot of stress. Williams from [facility] came to evaluate her and agrees that she is not at imminent risk of self harm and has facilitated a care plan for her safety upon discharge and inpatient psych is not recommended at this time. Plan to discharge today with follow up through [facility]. Labs (last 24 hrs) Laboratory Tests 07/30/17 13:40: Urine Color YELLOW, Urine Clarity VERY CLOUDYH, Urine pH 7, Urine Specific [place] 1.015L, Urine Protein NEGATIVE, Urine Glucose (UA) NEGATIVE, Urine Ketones NEGATIVE, Urine Nitrite NEGATIVE, Urine Bilirubin NEGATIVE, Urine Urobilinogen NORMAL, Urine Leukocyte Esterase NEGATIVE, Urine RBC (Auto) NEGATIVE, Urine RBC NONE, Urine WBC NONE, Urine Squamous Epithelial Cells 5-10, Urine Crystals NONE, Urine Amorphous Sediment LARGE POLO URATESH, Urine Bacteria NEGATIVE, Urine Casts NONE, Urine Mucus NEGATIVE, Urine Culture Indicated NO, Urine Opiates Screen NEGATIVE, Urine Oxycodone Screen NEGATIVE, Urine Methadone Screen NEGATIVE, Urine Propoxyphene Screen NEGATIVE, Urine Barbiturates Screen NEGATIVE, Ur Tricyclic Antidepressants Screen NEGATIVE, Urine Phencyclidine Screen NEGATIVE, Urine Amphetamines Screen POSITIVEH, Urine Methamphetamines Screen NEGATIVE, Urine Benzodiazepines Screen POSITIVEH, Urine Cocaine Screen NEGATIVE, Urine Cannabinoids Screen NEGATIVE 07/30/17 13:50: White Blood Count 5.0, Red Blood Count 4.41, Hemoglobin 12.8, Hematocrit 40, Mean Corpuscular Volume 90, Mean Corpuscular Hemoglobin 29, Mean Corpuscular Hemoglobin Concent 32, Red Cell Distribution Width 13.5, Platelet Count 291, Mean Platelet Volume 10.7H, Neutrophils (%) (Auto) 57, Lymphocytes (%) (Auto) 31 , Monocytes (%) (Auto) 9, Eosinophils (%) (Auto) 2, Basophils (%) (Auto) 1, Neutrophils # (Auto) 2.9, Lymphocytes # (Auto) 1.5, Monocytes # (Auto) 0.4, Eosinophils # (Auto) 0.1, Basophils # (Auto) 0.1, Sodium Level 139, Potassium Level 4.1, Chloride Level 106, Carbon Dioxide Level 27, Anion Gap 6, Blood Urea Nitrogen 10, Creatinine 0.91, Estimat Glomerular Filtration Rate > 60, BUN/ Creatinine Ratio 11, Glucose Level 89, Calcium Level 8.9, Total Bilirubin 0.3, Aspartate Amino Transf (AST/SGOT) 13, Alanine Aminotransferase (ALT/SGPT) 11, Alkaline Phosphatase 62, Total Protein 6.4, Albumin 3.7, Salicylates Level < 5.0L, Acetaminophen Level < 10L, Serum Alcohol < 10 07/31/17 04:15: White Blood Count 5.2, Red Blood Count 5.00, Hemoglobin 14.2, Hematocrit 46, Mean Corpuscular Volume 92, Mean Corpuscular Hemoglobin 28, Mean Corpuscular Hemoglobin Concent 31L, Red Cell Distribution Width 14.0, Platelet Count 287, Mean Platelet Volume 11.0H, Neutrophils (%) (Auto) 48, Lymphocytes (%) (Auto) 42 , Monocytes (%) (Auto) 6, Eosinophils (%) (Auto) 3, Basophils (%) (Auto) 1, Neutrophils # (Auto) 2.5, Lymphocytes # (Auto) 2.2, Monocytes # (Auto) 0.3, Eosinophils # (Auto) 0.2, Basophils # (Auto) 0.1, Sodium Level 139, Potassium Level 3.9, Chloride Level 106, Carbon Dioxide Level 26, Anion Gap 7, Blood Urea Nitrogen 8, Creatinine 0.98, Estimat Glomerular Filtration Rate > 60, BUN/ Creatinine Ratio 8, Glucose Level 76, Calcium Level 8.7, Phosphorus Level 3.5, Magnesium Level 2.4 Pending Labs Laboratory Tests 07/31/17 04:15: White Blood Count 5.2, Red Blood Count 5.00, Hemoglobin 14.2, Hematocrit 46, Mean Corpuscular Volume 92, Mean Corpuscular Hemoglobin 28, Mean Corpuscular Hemoglobin Concent 31, Red Cell Distribution Width 14.0, Platelet Count 287, Mean Platelet Volume 11.0, Neutrophils (%) (Auto) 48, Lymphocytes (%) (Auto) 42 , Monocytes (%) (Auto) 6, Eosinophils (%) (Auto) 3, Basophils (%) (Auto) 1, Neutrophils # (Auto) 2.5, Lymphocytes # (Auto) 2.2, Monocytes # (Auto) 0.3, Eosinophils # (Auto) 0.2, Basophils # (Auto) 0.1, Sodium Level 139, Potassium Level 3.9, Chloride Level 106, Carbon Dioxide Level 26, Anion Gap 7, Blood Urea Nitrogen 8, Creatinine 0.98, Estimat Glomerular Filtration Rate > 60, BUN/ Creatinine Ratio 8, Glucose Level 76, Calcium Level 8.7, Phosphorus Level 3.5, Magnesium Level 2.4 Discharge Home Medications: Active Scripts Active Active Prescriptions or Reported Medications Unobtainable Instructions to patient/family Please see electronic discharge instructions given to patient. Clinical Quality Measures DVT/VTE Risk/Contraindication: Risk Factor Score Per Nursin RFS Level Per Nursing on Admit: 1=Low/No VTE PPX Problem Qualifiers (1) Overdose of benzodiazepine: Encounter type: initial encounter Injury intent: intentional self-harm Qualified Codes: T42.4X2A - Poisoning by benzodiazepines, intentional self-harm , initial encounter (2) Major depression: Major depression recurrence: recurrent Active/Remission status: currently active Psychotic features: without psychotic features NESSA PROCTOR MD Jul 31, 2017 11:38 am
== END 2017-07-31 12:00 | disposition home or self-care (01) | DRG 918 ==
LOC: EDUNIT# 13:20 → ER 13:22 → ICU 15:05
PROVIDERS: ADMIT Family Medicine; ATTEND Family Medicine
DX: T42.4X2A Poisoning by benzodiazepines, intentional self-harm, initial encounter (principal); F15.10 Other stimulant abuse, uncomplicated; F32.9 Major depressive disorder, single episode, unspecified; F41.9 Anxiety disorder, unspecified; I10 Essential (primary) hypertension
CPT/HCPCS: 36415; 80048; 80053; 80178; 80306; 80320; 80329; 81000; 83735; 84100; 85025

== ENCOUNTER 2018-06-03 04:55 | Emergency (ER) | payer OTHER, MEDICAID ==
[~2018-06-03] VITALS: Ht 157.5 cm; Wt 63.9 kg
--- OUTSIDE RECORDS SUMMARY | 2018-06-03 05:03 | XMS REPORT ---
Author Author RAYMOND SIMENTAL Organization [facility] Address [address] [place] [address] Care Team Providers Care Blood Bank Specialist Name Role Phone RAYMOND SIMENTAL Unavailable PROBLEMS Type Condition ICD9-CM Code [id number] Code Onset Dates Condition Status SNOMED Code Problem Chronic fatigue R53.82 Active 53881004 Problem Recurrent major depressive disorder, in partial remission F33.41 Active 07406741 Problem Adderall use disorder, moderate F15.20 Active 57277951 Problem Episode of recurrent major depressive disorder, unspecified depression episode severity F33.9 Active 212155969 Problem Attention deficit hyperactivity disorder (ADHD), predominantly inattentive type F90.0 Active [id number] ALLERGIES No Information SOCIAL HISTORY Never Assessed PLAN OF CARE VITAL SIGNS MEDICATIONS Medication Instructions Dosage Frequency Start Date End Date Duration Status Percocet 5-325 MG Orally 3 times a day 1 tablet as needed 8h February, 28 days Active Ativan 0.5 MG Orally Once a day 1 tablet at bedtime as needed 24h 28 days Active RESULTS No Results PROCEDURES [...] Hospitalization History [facility]
--- OUTSIDE RECORDS SUMMARY | 2018-06-03 05:03 | XMS REPORT ---
Author Author RAYMOND SIMENTAL Organization [facility] [place] Address [address] [place] [address] Care Team Providers Care Regional Driver Name Role Phone RAYMOND SIMENTAL Unavailable PROBLEMS Type Condition ICD9-CM Code PHP67-TH Code Onset Dates Condition Status SNOMED Code Problem Chronic fatigue R53.82 Active 24572433 Problem Recurrent major depressive disorder, in partial remission F33.41 Active 62351705 Problem Adderall use disorder, moderate F15.20 Active 68508345 Problem Episode of recurrent major depressive disorder, unspecified depression episode severity F33.9 Active 103085966 Problem Attention deficit hyperactivity disorder (ADHD), predominantly inattentive type F90.0 Active 86607072 ALLERGIES No Information ENCOUNTERS Encounter Location Date Diagnosis [place] [id number] [place] [address]59- [address]117 Aug, [place] [address] [address] Jul, Chronic fatigue R53.82 ; Malaise R53.81 ; Exposure to STD Z20.2 and Unprotected sex Z72.51 [place] [id number] [place] [address] 63667- 1022 May, [place] [id number] [place] [address] 03306- 7854 May, Recurrent major depressive disorder, in partial remission F33.41 [place] [address] [address] May, Adderall use disorder, moderate F15.20 and Recurrent major depressive disorder, in partial remission F33.41 [place] [id number] [place] [address] 94281- 9351 May, Thoracic neuritis M54.14 and Recurrent major depressive disorder, in partial remission F33.41 [facility] [place] [address] [facility] [id number] [address] May, [facility] [place] [address] [facility] [id number], [place] [address] 2546 May, [facility] [place] [address] [facility] [id number], [place] [address] Apr, Thoracic neuritis M54.14 and Recurrent major depressive disorder, in partial remission F33.41 [facility] [place] [address] [facility] [id number], [place] [address] Apr, Adderall use disorder, moderate F15.20 and Recurrent major depressive disorder, in partial remission F33.41 [facility] [place] [address] [id number] [address] Mar, Recurrent major depressive disorder, in partial remission F33.41 and Thoracic neuritis M54.14 [facility] [place] [address] [id number] [address] Mar, Episode of recurrent major depressive disorder, unspecified depression episode severity F33.9 [facility] [place] [address] [id number] [address] 2546 Mar, Episode of recurrent major depressive disorder, unspecified depression episode severity F33.9 [facility] [place] [address] [id number] [address] February, Adderall use disorder, moderate F15.20 and Recurrent major depressive disorder, in partial remission F33.41 [facility] [place] [address] [facility] [id number], [place] [address] 2546 February, Recurrent major depressive disorder, in partial remission F33.41 and Thoracic neuritis M54.14 [facility] [place] [address] [facility] [id number], [place] [address] February, Episode of recurrent major depressive disorder, unspecified depression episode severity F33.9 [facility] [place] [address]00565[address] [address] February, Adderall use disorder, moderate F15.20 [facility] [place] [id number] [place] [address] 74165- 6073 February, [facility] [place] [id number] [place] [address] 35608- 7648 February, Recurrent major depressive disorder, in partial remission F33.41 and Thoracic neuritis M54.14 [facility] [place] [id number] [place] [address] 76792- 8233 February, Episode of recurrent major depressive disorder, unspecified depression episode severity F33.9 and Adderall use disorder, moderate F15.20 [facility] [place] [id number] [place] [address] 11220- 4440 Jan, [facility] [place] [id number] [place] [address] 53432- 8466 Jan, Adderall use disorder, moderate F15.20 and Recurrent major depressive disorder, in partial remission F33.41 [facility] [place] [id number] [place] [address] 09690- 7921 Jan, Attention deficit hyperactivity disorder (ADHD), predominantly inattentive type F90.0 [facility] [place] [address] [place] [address] 19457- 0934 Jan, Episode of recurrent major depressive disorder, unspecified depression episode severity F33.9 and Adderall use disorder, moderate F15.20 [facility] [place] [address], [place] [address] 07[address] Dec, Recurrent major depressive disorder, in partial remission F33.41 and Thoracic neuritis M54.14 [facility] [place] [id number] [place] [address] 40242- 1035 Dec, [facility] [place] [address] [place] [address] 18734- 4023 Dec, Adderall use disorder, moderate F15.20 [place] [address] [facility] [id number] [address] 15 Dec, 2016 Adderall use disorder, moderate F15.20 and Recurrent major depressive disorder, in partial remission F33.41 [place] [address], [place] [address] 13 Dec, 2016 Episode of recurrent major depressive disorder, unspecified depression episode severity F33.9 and Adderall use disorder, moderate F15.20 [place] [address] [facility] [id number] [address]- 3[address] 07 Dec, 2016 Thoracic neuritis M54.14 and Recurrent major depressive disorder, in partial remission F33.41 [place] [address] [address]- 4[address] 27 Nov, 2016 Adderall use disorder, moderate F15.20 [place] [address] [facility] [id number], [place] [address]- 4[address] 27 Nov, 2016 [place] [address] [facility] [id number], [place] [address]- 0365 27 Nov, 2016 Episode of recurrent major depressive disorder, unspecified depression episode severity F33.9 and Adderall use disorder, moderate F15.20 [place] [address] [id number] [place] [address] 24 Nov [place] [address] [facility] [id number] [address]- 4083 Nov, [place] [address] [facility] [id number], [place] [address]- 0911 Nov, Adderall use disorder, moderate F15.20 and Recurrent major depressive disorder, in partial remission F33.41 [place] [address] [facility] [id number], [place] [address]- [address] 09 Nov, 2016 Bipolar 1 disorder F31.9 ; Anxiety F41.9 ; Attention deficit hyperactivity disorder (ADHD), predominantly inattentive type F90.0 ; Cervical neuritis M54.12 and Thoracic neuritis M54.14 [facility] [place] [id number] [place] [address] 17179- 1664 Nov, Affective disorder F39 and Adderall use disorder, moderate F15.20 [facility] [place] [id number] [place] [address] 66669- 0114 Nov, Thoracic neuritis M54.14 [place] [address] 98[address]- 3898 Oct, Anxiety F41.9 and Thoracic neuritis M54.14 [place] [address] 254[address]- 5[address] Oct, Anxiety F41.9 [place] [address] 26540- 2865 Oct, Affective disorder F39 and Adderall use disorder, moderate F15.20 [place] [address] 014[address]- 0337 Oct, [place] [address] 42081- 3293 Oct, Encounter for immunization Z23 [place] [address] 028[address]- 0017 Oct, Affective disorder F39 and Adderall use disorder, moderate F15.20 [place] [id number] [place] [address] 83496- 6304 Oct, [place] [id number] [place] [address] 16512- 0245 Oct, [place] [address] 41370- 1441 Oct, Thoracic neuritis M54.14 ; Cervical neuritis M54.12 ; Lumbar neuritis M54.16 ; Bipolar 1 disorder F31.9 ; Recurrent major depressive disorder, in partial remission F33.41 ; Anxiety F41.9 and Attention deficit hyperactivity disorder (ADHD), predominantly inattentive type F90.0 [facility] [place] [address] [facility] [id number] [place] [address] 9[address] Oct, [facility] [address] [facility] [id number] [place] [address] May, Visit for TB skin test Z11.1 IMMUNIZATIONS No Known Immunizations SOCIAL HISTORY Never Assessed REASON FOR VISIT Controlled Med Refill04/18/17 PLAN OF CARE VITAL SIGNS MEDICATIONS Medication Instructions Dosage Frequency Start Date End Date Duration Status Ativan 0.5 MG Orally Once a day 1 tablet at bedtime as needed 24h 28 days Active Percocet 5-325 MG Orally 3 times a day 1 tablet as needed 8h Mar, 28 days Active RESULTS No Results PROCEDURES No Known procedures INSTRUCTIONS MEDICATIONS ADMINISTERED No Known Medications MEDICAL (GENERAL) HISTORY Type Description Date Medical History anxiety Medical History depression Medical History bipolar disorder Medical History personality disorder Medical History hypertension Medical History tachycardia Medical History Endometriosis/fibroids Surgical History cholecystectomy Surgical History Left Ulnar repair Surgical History Breast Bx- benign Surgical History tonsillectomy Surgical History Exploratory laparoscopic surgery for endometriosis Hospitalization History [facility]
--- OUTSIDE RECORDS SUMMARY | 2018-06-03 05:03 | XMS REPORT ---
Author Author EMANI CHAVIRA Organization [facility] Address [address] [place] [address] Care Team Providers Care Delivery Specialist Name Role Phone EMANI CHAVIRA Unavailable PROBLEMS Type Condition ICD9-CM Code [id number] Code Onset Dates Condition Status SNOMED Code Problem Chronic fatigue R53.82 Active 74769205 Problem Recurrent major depressive disorder, in partial remission F33.41 Active 65266523 Problem Adderall use disorder, moderate F15.20 Active 12900053 Problem Episode of recurrent major depressive disorder, unspecified depression episode severity F33.9 Active 772591170 Problem Attention deficit hyperactivity disorder (ADHD), predominantly inattentive type F90.0 Active 47397148 ALLERGIES No Information SOCIAL HISTORY Never Assessed PLAN OF CARE Activity Details Follow Up Next available Reason:depression VITAL SIGNS MEDICATIONS No Known Medications RESULTS No Results PROCEDURES Procedure Date Ordered Result Body Site Psychotherapy, patient &/family, 30 minutes, established patient March 24, 2017 IMMUNIZATIONS No Known Immunizations MEDICAL (GENERAL) HISTORY Type Description Date Medical History anxiety Medical History depression Medical History bipolar disorder Medical History personality disorder Medical History hypertension Medical History tachycardia Medical History Endometriosis/fibroids Surgical History cholecystectomy Surgical History Left Ulnar repair Surgical History Breast Bx- benign Surgical History tonsillectomy Surgical History Exploratory laparoscopic surgery for endometriosis Hospitalization History [facility]
--- OUTSIDE RECORDS SUMMARY | 2018-06-03 05:03 | XMS REPORT ---
Author Author EMANI CHAVIRA Organization [facility] Address [address] [place] [address] Care Team Providers Care Bowling Floor Desk Clerk Name Role Phone EMANI CHAVIRA Unavailable PROBLEMS Type Condition ICD9-CM Code [id number] Code Onset Dates Condition Status SNOMED Code Problem Chronic fatigue R53.82 Active 85620605 Problem Recurrent major depressive disorder, in partial remission F33.41 Active 48129542 Problem Adderall use disorder, moderate F15.20 Active 57083391 Problem Episode of recurrent major depressive disorder, unspecified depression episode severity F33.9 Active 651523161 Problem Attention deficit hyperactivity disorder (ADHD), predominantly inattentive type F90.0 Active 06877286 ALLERGIES No Information SOCIAL HISTORY Never Assessed PLAN OF CARE Activity Details Follow Up Next available Reason:depression VITAL SIGNS MEDICATIONS Unknown Medications RESULTS No Results PROCEDURES Procedure Date Ordered Result Body Site Psychotherapy, patient &/family, 30 minutes, established patient March 28, 2017 IMMUNIZATIONS No Known Immunizations MEDICAL (GENERAL) HISTORY Type Description Date Medical History anxiety Medical History depression Medical History bipolar disorder Medical History personality disorder Medical History hypertension Medical History tachycardia Medical History Endometriosis/fibroids Surgical History cholecystectomy Surgical History Left Ulnar repair Surgical History Breast Bx- benign Surgical History tonsillectomy Surgical History Exploratory laparoscopic surgery for endometriosis Hospitalization History [facility]
--- OUTSIDE RECORDS SUMMARY | 2018-06-03 05:03 | XMS REPORT ---
Author Author ARTURO MASON [facility] Address [address] [place] [address] Care Team Providers Care Demolition Expert Name Role Phone GRANT MASONROB Unavailable PROBLEMS Type Condition ICD9-CM Code VCK95-CB Code Onset Dates Condition Status SNOMED Code Problem Chronic fatigue R53.82 Active 11329080 Problem Recurrent major depressive disorder, in partial remission F33.41 Active 05543620 Problem Adderall use disorder, moderate F15.20 Active 44604120 Problem Episode of recurrent major depressive disorder, unspecified depression episode severity F33.9 Active 892259916 Problem Attention deficit hyperactivity disorder (ADHD), predominantly inattentive type F90.0 Active 43057103 ALLERGIES No Known Allergies ENCOUNTERS Encounter Location Date Diagnosis [place] [id number] [place] [address] 10466- 2237 Aug, [place] [address] [address]- [address] Jul, Chronic fatigue R53.82 ; Malaise R53.81 ; Exposure to STD Z20.2 and Unprotected sex Z72.51 [place] [id number] [place] [address] 30333- 0800 May, [place] [id number] [place] [address] 26635- 2335 May, Recurrent major depressive disorder, in partial remission F33.41 [place] [address] 95534- 5017 May, Adderall use disorder, moderate F15.20 and Recurrent major depressive disorder, in partial remission F33.41 [place] [id number] [place] [address] 20336- 7603 22 Aug, 2017 Thoracic neuritis M54.14 and Recurrent major depressive disorder, in partial remission F33.41 [facility] [address] [facility] [id number] [address]- 97[address] 17 May, 2017 [facility] [id number] [address]- 4436 May, [facility] [address] [id number] [address]- 4441 Apr, Thoracic neuritis M54.14 and Recurrent major depressive disorder, in partial remission F33.41 [facility] [address] [id number] [address]- 8643 Apr, Adderall use disorder, moderate F15.20 and Recurrent major depressive disorder, in partial remission F33.41 [place] [address] [id number] [address]- 7451 Mar, Recurrent major depressive disorder, in partial remission F33.41 and Thoracic neuritis M54.14 [facility] [address] [id number] [address]- 6243 Mar, Episode of recurrent major depressive disorder, unspecified depression episode severity F33.9 [place] [id number] [address]- 0756 Mar, Episode of recurrent major depressive disorder, unspecified depression episode severity F33.9 [facility] [address] [id number] [address] February, Adderall use disorder, moderate F15.20 and Recurrent major depressive disorder, in partial remission F33.41 [facility] [address] [facility] [id number] [place] [address]- 9546 February, Recurrent major depressive disorder, in partial remission F33.41 and Thoracic neuritis M54.14 [facility] [address] [facility] [id number] [place] [address]- 8846 February, Episode of recurrent major depressive disorder, unspecified depression episode severity F33.9 [facility] [address] [address]- 8[address] February, Adderall use disorder, moderate F15.20 [facility] [id number] [place] [address] 50572- 0961 February, [facility] [address] [address]- 0761 February, Recurrent major depressive disorder, in partial remission F33.41 and Thoracic neuritis M54.14 [facility] [id number] [place] [address] 19427- 7070 February, Episode of recurrent major depressive disorder, unspecified depression episode severity F33.9 and Adderall use disorder, moderate F15.20 [place] [address] [address]- 6835 Jan, [place] [id number] [place] [address] 06027- 6151 Jan, Adderall use disorder, moderate F15.20 and Recurrent major depressive disorder, in partial remission F33.41 [facility] [address] [place] [address] 51295- 3908 Jan, Attention deficit hyperactivity disorder (ADHD), predominantly inattentive type F90.0 [place] [address] [address]- 7080 Jan, Episode of recurrent major depressive disorder, unspecified depression episode severity F33.9 and Adderall use disorder, moderate F15.20 [facility] [address] [address]- 2123 Dec, Recurrent major depressive disorder, in partial remission F33.41 and Thoracic neuritis M54.14 [facility] [address] [address]- 7657 Dec, [facility] [address] [address]- 4490 Dec, Adderall use disorder, moderate F15.20 [place] [address] [facility] [id number] [place] [address]- 6048 15 Dec, 2016 Adderall use disorder, moderate F15.20 and Recurrent major depressive disorder, in partial remission F33.41 [facility] [address] [id number] [address]- 3099 13 Dec, 2016 Episode of recurrent major depressive disorder, unspecified depression episode severity F33.9 and Adderall use disorder, moderate F15.20 [place] [address] [facility] [id number] [place] [address]- 7497 07 Dec, 2016 Thoracic neuritis M54.14 and Recurrent major depressive disorder, in partial remission F33.41 [place] [address] [address]- 4805 27 Nov, 2016 Adderall use disorder, moderate F15.20 [place] [address] [address]- 5155 27 Nov, 2016 [place] [address] [id number] [address]- 2229 27 Nov, 2016 Episode of recurrent major depressive disorder, unspecified depression episode severity F33.9 and Adderall use disorder, moderate F15.[address] [id number] [place] [address] 24 Nov [place] [address] [facility] [id number] [place] [address]- 4667 Nov, [place] [address] [facility] [id number] [place] [address]- 8889 Nov, Adderall use disorder, moderate F15.20 and Recurrent major depressive disorder, in partial remission F33.41 [place] [address] [facility] [id number] [place] [address]- 0599 09 Nov, 2016 Bipolar 1 disorder F31.9 ; Anxiety F41.9 ; Attention deficit hyperactivity disorder (ADHD), predominantly inattentive type F90.0 ; Cervical neuritis M54.12 and Thoracic neuritis M54.14 [place] [id number] [place] [address] 79668- 4715 Nov, Affective disorder F39 and Adderall use disorder, moderate F15.20 [place] [address] [address]- 3371 Nov, Thoracic neuritis M54.14 [place] [address] 64097- 0284 Oct, Anxiety F41.9 and Thoracic neuritis M54.14 [place] [address] 85690- 3410 Oct, Anxiety F41.9 [place] [id number] [place] [address] 07800- 8839 Oct, Affective disorder F39 and Adderall use disorder, moderate F15.20 [place] [address] 9[address]- 9980 Oct, [place] [address] 9[address]- 5717 Oct, Encounter for immunization Z23 [place] [address] 59037- 5183 Oct, Affective disorder F39 and Adderall use disorder, moderate F15.20 [place] [id number] [place] [address] 97098- 9149 Oct, [place] [id number] [place] [address] 06550- 8411 Oct, [place] [address] 7[address]- 4889 Oct, Thoracic neuritis M54.14 ; Cervical neuritis M54.12 ; Lumbar neuritis M54.16 ; Bipolar 1 disorder F31.9 ; Recurrent major depressive disorder, in partial remission F33.41 ; Anxiety F41.9 and Attention deficit hyperactivity disorder (ADHD), predominantly inattentive type F90.0 [facility] [address] [facility] [id number] [place] [address]- 6[address] Oct, [facility] [address] [facility] [id number] [place] [id number] May, Visit for TB skin test Z11.1 IMMUNIZATIONS No Known Immunizations SOCIAL HISTORY Never Assessed REASON FOR VISIT f/u [employer] PLAN OF CARE Activity Details Follow Up 4 Weeks Reason: VITAL SIGNS Height 62 in 2017-06-14 Weight 137.6 lbs 2017-06-14 Heart Rate 88 bpm 2017-06-14 Respiratory Rate 20 2017-06-14 BMI 25.16 kg/m2 2017-06-14 Blood pressure systolic 118 mmHg 2017-06-14 Blood pressure diastolic 84 mmHg 2017-06-14 MEDICATIONS Medication Instructions Dosage Frequency Start Date End Date Duration Status Neurontin 100 mg Orally Three times a day 1 capsule 8h 30 Active Hydrochlorothiazide 25 MG Orally Once a day 1 tablet in the morning 24h Active Trintellix 20 mg Orally Once a day 1 tablet 24h 30 day(s) Active Percocet 5-325 MG Orally 3 times a day 1 tablet as needed 8h May, 28 days Active Ativan 0.5 MG Orally [...]
--- OUTSIDE RECORDS SUMMARY | 2018-06-03 05:03 | XMS REPORT ---
Author Author ARTURO MASON [facility] Address [address] [place] [address] Care Team Providers Care Automatic Vulcanizing Operator Name Role Phone GRANT MASONROB Unavailable PROBLEMS Type Condition ICD9-CM Code [id number] Code Onset Dates Condition Status SNOMED Code Problem Chronic fatigue R53.82 Active 69636849 Problem Recurrent major depressive disorder, in partial remission F33.41 Active 71543621 Problem Adderall use disorder, moderate F15.20 Active 36792925 Problem Episode of recurrent major depressive disorder, unspecified depression episode severity F33.9 Active 476746717 Problem Attention deficit hyperactivity disorder (ADHD), predominantly inattentive type F90.0 Active 64676265 ALLERGIES No Known Allergies ENCOUNTERS Encounter Location Date Diagnosis [place] [id number] [place] [address] 6811 Aug, [place] [address] [address] Jul, Chronic fatigue R53.82 ; Malaise R53.81 ; Exposure to STD Z20.2 and Unprotected sex Z72.51 [place] [id number] [place] [address] 93911- 3212 May, [place] [id number] [place] [address] 72257- 4023 May, Recurrent major depressive disorder, in partial remission F33.41 [place] [address] [address] May, Adderall use disorder, moderate F15.20 and Recurrent major depressive disorder, in partial remission F33.41 [place] [id number] [place] [address] 18303- 2653 22 Aug, 2017 Thoracic neuritis M54.14 and Recurrent major depressive disorder, in partial remission F33.41 [facility] [address] [facility] [id number], [place] [address] 17 May, 2017 [facility] [address] [id number] [address] May, [facility] [address] [id number], [place] [address] Apr, Thoracic neuritis M54.14 and Recurrent major depressive disorder, in partial remission F33.41 [facility] [address] [id number], [place] [address] Apr, Adderall use disorder, moderate F15.20 and Recurrent major depressive disorder, in partial remission F33.41 [place] [address] [id number] [address] Mar, Recurrent major depressive disorder, in partial remission F33.41 and Thoracic neuritis M54.14 [facility] [address] [id number], [place] [address] Mar, Episode of recurrent major depressive disorder, unspecified depression episode severity F33.9 [place] [address] [id number], [place] [address] 70[address] Mar, Episode of recurrent major depressive disorder, unspecified depression episode severity F33.9 [facility] [id number], [place] [address] February, Adderall use disorder, moderate F15.20 and Recurrent major depressive disorder, in partial remission F33.41 [facility] [address] [facility] [id number], [place] [address] February, Recurrent major depressive disorder, in partial remission F33.41 and Thoracic neuritis M54.14 [facility] [address] [facility] [id number], [place] [address] February, Episode of recurrent major depressive disorder, unspecified depression episode severity F33.9 [facility] [address], [place] [address] February, Adderall use disorder, moderate F15.20 [facility] [id number] [place] [address] 43834- 4415 February, [facility] [address], [place] [address] February, Recurrent major depressive disorder, in partial remission F33.41 and Thoracic neuritis M54.14 [facility] [id number] [place] [address] 23361- 3353 February, Episode of recurrent major depressive disorder, unspecified depression episode severity F33.9 and Adderall use disorder, moderate F15.20 [place] [address], [place] [address] Jan, [place] [id number] [place] [address] 18982- 4442 Jan, Adderall use disorder, moderate F15.20 and Recurrent major depressive disorder, in partial remission F33.41 [facility] [address] [place] [address] 23784- 4189 Jan, Attention deficit hyperactivity disorder (ADHD), predominantly inattentive type F90.0 [place] [address], [place] [address] Jan, Episode of recurrent major depressive disorder, unspecified depression episode severity F33.9 and Adderall use disorder, moderate F15.20 [facility] [address], [place] [address]- 3[address] Dec, Recurrent major depressive disorder, in partial remission F33.41 and Thoracic neuritis M54.14 [facility] [address], [place] [address] 14[address] Dec, [facility] [address], [place] [address] Dec, Adderall use disorder, moderate F15.20 [place] [address] [facility] [id number], [place] [address] 15 Dec, 2016 Adderall use disorder, moderate F15.20 and Recurrent major depressive disorder, in partial remission F33.41 [facility] [id number], [place] [address] 8[address] 13 Dec, 2016 Episode of recurrent major depressive disorder, unspecified depression episode severity F33.9 and Adderall use disorder, moderate F15.20 [place] [address] [facility] [id number], [place] [address] 07 Dec, 2016 Thoracic neuritis M54.14 and Recurrent major depressive disorder, in partial remission F33.41 [place] [address], [place] [address] 8[address] 27 Nov, 2016 Adderall use disorder, moderate F15.20 [place] [address], [place] [address] 6[address] 27 Nov, 2016 [place] [id number], [place] [address] 27 Nov, 2016 Episode of recurrent major depressive disorder, unspecified depression episode severity F33.9 and Adderall use disorder, moderate F15.[address] [id number] [place] [address] 24 Nov [place] [address] [facility] [id number], [place] [address]- [address] Nov, [place] [address] [facility] [id number], [place] [address]- [address] Nov, Adderall use disorder, moderate F15.20 and Recurrent major depressive disorder, in partial remission F33.41 [place] [address] [facility] [id number], [place] [address]- [address] 09 Nov, 2016 Bipolar 1 disorder F31.9 ; Anxiety F41.9 ; Attention deficit hyperactivity disorder (ADHD), predominantly inattentive type F90.0 ; Cervical neuritis M54.12 and Thoracic neuritis M54.14 [place] [id number] [place] [address] 66177- 5543 Nov, Affective disorder F39 and Adderall use disorder, moderate F15.20 [place] [address] 7[address]- 2205 Nov, Thoracic neuritis M54.14 [place] [address] 6[address]- 3957 Oct, Anxiety F41.9 and Thoracic neuritis M54.14 [place] [address] 287[address]- 6[address] Oct, Anxiety F41.9 [place] [id number] [place] [address] 99026- 6654 Oct, Affective disorder F39 and Adderall use disorder, moderate F15.20 [place] [address] 62697- 8710 Oct, [place] [address] [address]- [address] Oct, Encounter for immunization Z23 [place] [address] 26[address]- 0814 Oct, Affective disorder F39 and Adderall use disorder, moderate F15.20 [place] [id number] [place] [address] 56914- 4362 Oct, [place] [id number] [place] [address] 56344- 2004 Oct, [place] [address] 136[address]- 50[address] Oct, Thoracic neuritis M54.14 ; Cervical neuritis M54.12 ; Lumbar neuritis M54.16 ; Bipolar 1 disorder F31.9 ; Recurrent major depressive disorder, in partial remission F33.41 ; Anxiety F41.9 and Attention deficit hyperactivity disorder (ADHD), predominantly inattentive type F90.0 [facility] [address] [facility] [id number] [place] [address] Oct, [facility] [place] [address] [facility] [id number] [place] [id number] May, Visit for TB skin test Z11.1 IMMUNIZATIONS No Known Immunizations SOCIAL HISTORY Never Assessed REASON FOR VISIT darwin Souza MA PLAN OF CARE Activity Details Follow Up 4 Weeks Reason: VITAL SIGNS Height 62 in 2017-05-03 Weight 150.6 lbs 2017-05-03 Heart Rate 108 bpm 2017-05-03 Respiratory Rate 20 2017-05-03 BMI 27.54 kg/m2 2017-05-03 Blood pressure systolic 144 mmHg 2017-05-03 Blood pressure diastolic 80 mmHg 2017-05-03 MEDICATIONS Medication Instructions Dosage Frequency Start Date End Date Duration Status Vyvanse 50 MG Orally Once a day 1 capsule in the morning 24h Apr, 30 days Active Hydrochlorothiazide 25 MG Orally Once a day 1 tablet in the morning 24h Active Trintellix 20 mg Orally Once a day 1 tablet 24h Apr, 30 day(s) Active Ativan 0.5 MG Orally Once a day 1 tablet at bedtime as needed 24h 28 days Active Neurontin 100 mg Orally Three times a day 1 capsule 8h 30 Active Percocet 5-325 MG Orally 3 times [...] Exploratory laparoscopic surgery for endometriosis Hospitalization History [facility]
--- OUTSIDE RECORDS SUMMARY | 2018-06-03 05:04 | XMS REPORT ---
Author Author RAYMOND SIMENTAL Organization [facility] Address [address] [place] [address] Care Team Providers Care Assembler Knife Name Role Phone RAYMOND SIMENTAL Unavailable PROBLEMS Type Condition ICD9-CM Code [id number] Code Onset Dates Condition Status SNOMED Code Problem Chronic fatigue R53.82 Active 26917799 Problem Recurrent major depressive disorder, in partial remission F33.41 Active 35733147 Problem Adderall use disorder, moderate F15.20 Active 89063292 Problem Episode of recurrent major depressive disorder, unspecified depression episode severity F33.9 Active 123863762 Problem Attention deficit hyperactivity disorder (ADHD), predominantly inattentive type F90.0 Active 06506933 ALLERGIES No Information ENCOUNTERS Encounter Location Date Diagnosis [place] [id number] [place] [address] 65329- 7125 Aug, [place] [address] [address]- [address] Jul, Chronic fatigue R53.82 ; Malaise R53.81 ; Exposure to STD Z20.2 and Unprotected sex Z72.51 [place] [id number] [place] [address] 59423- 1532 May, [place] [id number] [place] [address] 24934- 8421 May, Recurrent major depressive disorder, in partial remission F33.41 [place] [address] 02048- 0571 May, Adderall use disorder, moderate F15.20 and Recurrent major depressive disorder, in partial remission F33.41 [place] [id number] [place] [address] 20771- 8193 May, Thoracic neuritis M54.14 and Recurrent major depressive disorder, in partial remission F33.41 [facility] [address] [facility] [id number], [place] [address]- 7[address] May, [facility] [address] [facility] [id number], [place] [address] 2546 May, [facility] [address] [facility] [id number], [place] [address]- [address] Apr, Thoracic neuritis M54.14 and Recurrent major depressive disorder, in partial remission F33.41 [facility] [address] [facility] [id number], [place] [address]- 0706 Apr, Adderall use disorder, moderate F15.20 and Recurrent major depressive disorder, in partial remission F33.41 [facility] [address] [id number], [place] [address]- 9596 Mar, Recurrent major depressive disorder, in partial remission F33.41 and Thoracic neuritis M54.14 [facility] [address] [id number], [place] [address]- 5828 Mar, Episode of recurrent major depressive disorder, unspecified depression episode severity F33.9 [facility] [address] [id number], [place] [address] 2546 Mar, Episode of recurrent major depressive disorder, unspecified depression episode severity F33.9 [facility] [id number], [place] [address]- 5866 February, Adderall use disorder, moderate F15.20 and Recurrent major depressive disorder, in partial remission F33.41 [facility] [address] [facility] [id number], [place] [address] 2546 February, Recurrent major depressive disorder, in partial remission F33.41 and Thoracic neuritis M54.14 [facility] [address] [facility] [id number], [place] [address]- 1606 February, Episode of recurrent major depressive disorder, unspecified depression episode severity F33.9 [facility] [address], [place] [address]- 9801 February, Adderall use disorder, moderate F15.20 [facility] [id number] [place] [address] 36724- 3487 February, [facility] [id number] [place] [address] 73624- 5814 February, Recurrent major depressive disorder, in partial remission F33.41 and Thoracic neuritis M54.14 [facility] [id number] [place] [address] 30644- 6684 February, Episode of recurrent major depressive disorder, unspecified depression episode severity F33.9 and Adderall use disorder, moderate F15.20 [facility] [id number] [place] [address] 44931- 1974 Jan, [facility] [id number] [place] [address] 98518- 6146 Jan, Adderall use disorder, moderate F15.20 and Recurrent major depressive disorder, in partial remission F33.41 [facility] [id number] [place] [address] 63140- 1814 Jan, Attention deficit hyperactivity disorder (ADHD), predominantly inattentive type F90.0 [facility] [address] [place] [address] 26368- 0753 Jan, Episode of recurrent major depressive disorder, unspecified depression episode severity F33.9 and Adderall use disorder, moderate F15.20 [facility] [address]65[address], [place] [address]- 7697 Dec, Recurrent major depressive disorder, in partial remission F33.41 and Thoracic neuritis M54.14 [facility] [id number] [place] [address] 05709- 6309 Dec, [facility] [address] [place] [address] 41917- 6174 Dec, Adderall use disorder, moderate F15.20 [place] [address] [facility] [id number], [place] [address]- 7519 15 Dec, 2016 Adderall use disorder, moderate F15.20 and Recurrent major depressive disorder, in partial remission F33.41 [place] [address], [place] [address]- 7050 13 Dec, 2016 Episode of recurrent major depressive disorder, unspecified depression episode severity F33.9 and Adderall use disorder, moderate F15.20 [place] [address] [facility] [id number], [place] [address]- 7030 07 Dec, 2016 Thoracic neuritis M54.14 and Recurrent major depressive disorder, in partial remission F33.41 [place] [address], [place] [address]- 2264 27 Nov, 2016 Adderall use disorder, moderate F15.20 [place] [address] [facility] [id number], [place] [address]- 6642 27 Nov, 2016 [place] [address] [facility] [id number], [place] [address]- 0167 27 Nov, 2016 Episode of recurrent major depressive disorder, unspecified depression episode severity F33.9 and Adderall use disorder, moderate F15.20 [place] [address] [address] [id number] [place] [address] 24 Nov [place] [address] [facility] [id number], [place] [address]- 6014 Nov, [place] [address] [facility] [id number], [place] [address]- 6963 Nov, Adderall use disorder, moderate F15.20 and Recurrent major depressive disorder, in partial remission F33.41 [place] [address] [facility] [id number], [place] [address]- 4[address] 09 Nov, 2016 Bipolar 1 disorder F31.9 ; Anxiety F41.9 ; Attention deficit hyperactivity disorder (ADHD), predominantly inattentive type F90.0 ; Cervical neuritis M54.12 and Thoracic neuritis M54.14 [facility] [id number] [place] [address] 48956- 4425 Nov, Affective disorder F39 and Adderall use disorder, moderate F15.20 [facility] [id number] [place] [address] 56113- 5632 Nov, Thoracic neuritis M54.14 [place] [address] 14993- 4053 Oct, Anxiety F41.9 and Thoracic neuritis M54.14 [place] [address] 7[address]87- 7031 Oct, Anxiety F41.9 [place] [address] 61174- 2198 Oct, Affective disorder F39 and Adderall use disorder, moderate F15.20 [place] [address] 28219- 7473 Oct, [place] [address] 27150- 7536 Oct, Encounter for immunization Z23 [place] [address] 96187- 9514 Oct, Affective disorder F39 and Adderall use disorder, moderate F15.20 [place] [id number] [place] [address] 62606- 8048 Oct, [place] [id number] [place] [address] 17156- 0551 Oct, [place] [address] 70764- 0365 Oct, Thoracic neuritis M54.14 ; Cervical neuritis M54.12 ; Lumbar neuritis M54.16 ; Bipolar 1 disorder F31.9 ; Recurrent major depressive disorder, in partial remission F33.41 ; Anxiety F41.9 and Attention deficit hyperactivity disorder (ADHD), predominantly inattentive type F90.0 [facility] [address] [facility] [id number] [place] [address]- 1432 Oct, [facility] [place] [address] [facility] [id number] [place] [address] May, Visit for TB skin test Z11.1 IMMUNIZATIONS No Known Immunizations SOCIAL HISTORY Never Assessed REASON FOR VISIT Controlled Med Refill 05/16/17 PLAN OF CARE VITAL SIGNS MEDICATIONS Medication Instructions Dosage Frequency Start Date End Date Duration Status Percocet 5-325 MG Orally 3 times a day 1 tablet as needed 8h Apr, 28 days Active Ativan 0.5 MG Orally [...] Exploratory laparoscopic surgery for endometriosis Hospitalization History [facility]
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
[2018-06-03] MEDS ORDERED: PHEN15CA (05:27)
--- NOTE | 2018-06-03 06:08 | ED General ---
General Chief Complaint: Head/Cervical Problems Stated Complaint: PAIN ON LEFT SIDE OF FACE & NECK Nursing Triage Note: PT PRESENTS TO ER WITH COMPLAINT OF NECK AND HEAD PAIN. STATES FEELS LIKE LYMPH NODES ARE SWOLLEN. ALSO STATES IT HURTS TO SWALLOW. Nursing Sepsis Screen: No Definite Risk Source of Information: Patient Exam Limitations: No Limitations History of Present Illness Date Seen by Provider: Jun 03, 2018 Time Seen by Provider: 05:24 Initial Comments This 42-year-old woman presents to the emergency room with complaints of bilateral anterior neck pain, hoarse voice, and mildly sore throat. Symptoms started yesterday but woke her from sleep this morning. She denies fever. Last menstrual period is now. Allergies and Home Medications Allergies Coded Allergies: No Known Drug Allergies (Unverified , 09/23/13) Patient Home Medication List Home Medication List Reviewed: Yes Review of Systems Constitutional: no symptoms reported EENTM: see HPI Respiratory: no symptoms reported Cardiovascular: no symptoms reported Gastrointestinal: no symptoms reported Genitourinary: no symptoms reported : No Musculoskeletal: see HPI Skin: no symptoms reported Psychiatric/Neurological: No Symptoms Reported Hematologic/Lymphatic: See HPI Immunological/Allergic: no symptoms reported Past Lcqtdue-Ojjfnu-Xxanhp Hx Past Med/Social Hx: Reviewed Nursing Past Med/Soc Hx Patient Social History Alcohol Use: Occasionally Uses Recreational Drug Use: No Smoking Status: Never a Smoker 2nd Hand Smoke Exposure: No Recent Foreign Travel: No Contact w/Someone Who Travel: No Recent Infectious Disease Expo: No Recent Hopitalizations: No Immunizations Up To Date Tetanus Booster (TDap): More than 5yrs PED Vaccines UTD: No Date of Influenza Vaccine: Aug 23, 2013 Seasonal Allergies Seasonal Allergies: No Past Medical History Surgeries: Yes (ULNAR NERVE, BREAST BIOPSY, d&c) Gallbladder, Tonsillectomy Respiratory: Yes Asthma Currently Using CPAP: No Currently Using BIPAP: No Cardiac: Yes Hypertension, Irregular Heartbeat Neurological: Yes Reproductive Disorders: No Genitourinary: No Gastrointestinal: No Musculoskeletal: Yes Chronic Back Pain Endocrine: No HEENT: No Cancer: No Psychosocial: Yes ADD/ADHD, Anxiety, Suicide Attempts, Depression Integumentary: No Blood Disorders: No Adverse Reaction/Blood Tranf: No Family Medical History Family history: Cardiovascular disease 03 FATHER (55 ) Family history: Hypertension 03 FATHER, Onset:55 Heart disease 03 FATHER, Onset:55 History of - respiratory disease 03 FATHER, Onset:50 Hypercholesterolemia 03 FATHER, Onset:55 No Family History of: Abdominal aortic aneurysm Andrade's disease Alcoholism Aphasia Cancer Cancer of colon Cataract Chest pain Congenital heart disease Congestive heart failure Cystic fibrosis Dementia Dysphagia Family history: Allergy Family history: Alzheimer's disease Family history: Arthritis Family history: Asthma Family history: Breast disease Family history: Coronary thrombosis Family history: Diabetes mellitus Family history: Gastrointestinal disease Family history: Glaucoma Family history: Osteoporosis Family history: Thyroid disorder Headache Hearing loss Hereditary disease History of - anemia History of - disorder History of drug abuse Human immunodeficiency virus (HIV) seropositivity Infertile Kidney disease Malignant neoplasm of lung Myocardial infarction Parkinson's disease Prostate cancer Psychotic disorder Seizure disorder Stroke Tuberculosis Visual impairment Physical Exam Vital Signs Vital Signs - First Documented 06/03/18 05:18 Temp 98.8 Pulse 87 Resp 18 B/P (MAP) 122/73 (89) Pulse Ox 95 O2 Delivery Room Air Capillary Refill : Less Than 3 Seconds Height, Weight, BMI Height: 5'2.00" Weight: 140lbs. 12.8oz. 63.159924pc; 25.3 BMI Method:Stated General Appearance: No Apparent Distress, WD/WN HEENT: PERRL/EOMI, TMs Normal, Normal ENT Inspection, Pharynx Normal Neck: Supple, Lymphadenopathy (L) (Shotty and mildly tender), Lymphadenopathy ( R) (Shotty and mildly tender), Other (Tender musculature on the left lateral neck) Respiratory: Lungs Clear, Normal Breath Sounds, No Accessory Muscle Use, No Respiratory Distress Cardiovascular: Regular Rate, Rhythm, No Edema, No Murmur Gastrointestinal: Non Tender, Soft Back: Normal Inspection Extremity: Normal Inspection, No Pedal Edema Neurologic/Psychiatric: Alert, Oriented x3, No Motor/Sensory Deficits, Normal Mood/Affect, retoucher II-XII Norm as Tested Skin: Normal Color, Warm/Dry Progress/Results/Core Measures Suspected Sepsis Recent Fever Within 48 Hours: No Infection Criteria Present: None New/Unexplained Altered Menta: No Sepsis Screen: No Definite Risk SIRS Temperature:98.8 Pulse: 87 Respiratory Rate: 18 Blood Pressure 122 /73 Mean: 89 Results/Orders Lab Results Laboratory Tests Test 06/03/18 05:38 Range/Units Group A Streptococcus Screen NEGATIVE NEGATIVE Micro Results Microbiology 06/03/18 Throat Culture - Preliminary, Resulted No Beta Strep isolated My Orders Orders - ELENI PERALTA MD Rapid Strep A Screen (06/03/18 05:40) Vital Signs/I&O Capillary Refill : Less Than 3 Seconds Blood Pressure Mean: 89 Progress Note : Progress Note Rapid strep test was negative. Symptoms were felt likely due to viral illness. Departure Impression Primary Impression: Pharyngitis Qualified Codes: J02.9 - Acute pharyngitis, unspecified Additional Impression: Cervical lymphadenitis Disposition: HOME, SELF-CARE Condition: Stable Departure-Patient Inst. Decision time for Depature: 06:06 Referrals: NO,LOCAL PHYSICIAN (PCP/Family) Primary Care Physician Patient Instructions: Sore Throat in Adults Add. Discharge Instructions: For pain continue taking Aleve or ibuprofen. Add Tylenol (acetaminophen) up to 1000 mg every 6 hours as needed for additional relief of pain. Contact your primary care provider or return to care if symptoms worsen or are not improving as anticipated over the next few days. All discharge instructions reviewed with patient and/or family. Voiced understanding. Work/School Note: Work Release Form Date Seen in the Emergency Department: Jun 03, 2018 Return to Work: Jun 04, 2018 Restrictions: No Restrictions ELENI PERALTA MD Jun 03, 2018 06:07
[2018-06-03 06:12] VITALS: BP 122/73
== END 2018-06-03 06:13 | disposition home or self-care (01) ==
LOC: EDUNIT# 04:55 → ER 04:58
DX: J02.9 Acute pharyngitis, unspecified (principal); I88.9 Nonspecific lymphadenitis, unspecified; J45.909 Unspecified asthma, uncomplicated; I10 Essential (primary) hypertension; F90.9 Attention-deficit hyperactivity disorder, unspecified type; F41.9 Anxiety disorder, unspecified; F32.9 Major depressive disorder, single episode, unspecified; Z91.5 Personal history of self-harm; Z82.49 Family history of ischemic heart disease and other diseases of the circulatory system; Z90.89 Acquired absence of other organs
CPT/HCPCS: 87430; 99282

== ENCOUNTER → 2020-12-29 | Outpatient (CLI) | payer BC, MEDICAID, OTHER ==
[~2020-12-29] MED LIST changes: -HYDR-3454 PO; +HYDR-3455 PO; -OXYC-197 PO; +OXYC1TAB87 PO; +PHEN15CA; -TRAM50TA2 PO; +TRM50T PO
--- NOTE | 2020-12-29 12:16 | Diagnostic Imaging Report ---
PROCEDURE: Pelvic comp/transvaginal sonogram. TECHNIQUE: Complete transabdominal and transvaginal pelvic ultrasound was performed. In addition, limited pelvic Doppler was performed. INDICATION: Irregular cycles and questionable fibroids. Uterus is retroflexed measuring 9.3 x 3.6 x 5.0 cm. No myometrial mass is detected. Endometrium is 6 mm in thickness. Right ovary measures 2.5 x 1.2 x 1.7 cm and the left ovary measures 1.7 x 1.2 x 2.2 cm. Both ovaries demonstrate blood flow. No adnexal mass or free pelvic fluid is detected. IMPRESSION: Unremarkable transabdominal and transvaginal pelvic ultrasound. Dictated by: Dictated on workstation # [id number]
--- NOTE | 2020-12-29 12:20 | Diagnostic Imaging Report ---
Indication: Routine screening No prior mammograms are available for comparison. 2-D and 3-D bilateral screening mammography was performed with CAD. Both breast are heterogeneously dense, limiting the sensitivity of mammography. No mass or malignant appearing microcalcifications are seen. Axillae are unremarkable. IMPRESSION: BI-RADS Category 1 No mammographic features suspicious for malignancy are identified. ACR BI-RADS Category 1: Negative. Result letter will be mailed to the patient. Note: At least 10% of breast cancer is not imaged by mammography. Dictated by: Dictated on workstation # [id number]
== END ==
LOC: RAD 09:12
PROVIDERS: ATTEND Obstetrics & Gynecology
DX: Z12.31 Encounter for screening mammogram for malignant neoplasm of breast (principal); D25.9 Leiomyoma of uterus, unspecified
CPT/HCPCS: 76830; 76856; 77063; 77067

== ENCOUNTER 2021-04-09 22:52 | Emergency (ER) | payer BC ==
[~2021-04-09] VITALS: Ht 157 cm; Wt 59.9 kg
[2021-04-09] MEDS ORDERED: LIDOCAINE/EPI 1%-1:100,000 (XYLOCAINE) 20ML ONE (23:58)
[2021-04-10] MEDS ORDERED: TETANUS,DIPTH,PERTUSS P/F (BOOSTRIX) 0.5 ML VIAL IM ONE
[2021-04-10] MEDS ORDERED: RX-CEPHALEXIN (KEFLEX) 250 MG CAP PPK#4 PO STA (00:32)
[2021-04-10] MEDS ORDERED: CEPH500T PO (00:36)
--- NOTE | 2021-04-10 00:36 | ED Lower Extremity ---
General Chief Complaint: Laceration Stated Complaint: LEFT HEEL INJURY Nursing Triage Note: TO ED VIA POV AND AMBULATORY TO ROOM 3 WITH C/O STEPPING ON RAZOR BLADE STUCK IN CARPET ON LEFT HEEL. Nursing Sepsis Screen: No Definite Risk Source: patient History of Present Illness Date Seen by Provider: Apr 09, 2021 Time Seen by Provider: 23:48 Initial Comments PT ARRIVES VIA POV FROM HOME C/O LACERATION TO LEFT HEEL STATES AROUND 2230 TONIGHT SHE STEPPED ON A BOX KNIFE RAZOR BLADE, CUTTING HER HEEL WAS BAREFOOT AT THE TIME NO OTHER INJURIES FROM THE INCIDENT NO PARESTHESIAS OR MOTOR DEFICITS PT IS NOT DIABETIC PT IS NOT ON ASPIRIN OR BLOOD THINNERS PT IS NOT UP TO DATE ON TETANUS VACCINE PT WORKS AT A [employer], STANDS ALL DAY PCP: JOSH,, INSTALLATION COORDINATOR EMILIA Allergies and Home Medications Allergies Coded Allergies: No Known Drug Allergies (Unverified , 09/23/13) Home Medications Cephalexin 500 Mg Tablet, 500 MG PO QID Prescribed by: VARUN LAEK on 04/10/21 0036 Patient Home Medication List Home Medication List Reviewed: Yes Review of Systems Constitutional: no symptoms reported Musculoskeletal: see HPI Skin: see HPI Psychiatric/Neurological: No Symptoms Reported Past Eccbkcy-Tzjets-Aqwooj Hx Past Med/Social Hx: Reviewed and Corrections made Patient Social History Alcohol Use: Denies Use Smoking Status: Never a Smoker 2nd Hand Smoke Exposure: No Recent Infectious Disease Expo: No Recent Hopitalizations: No Immunizations Up To Date Tetanus Booster (TDap): More than 5yrs PED Vaccines UTD: No Date of Influenza Vaccine: Aug 23, 2013 Seasonal Allergies Seasonal Allergies: No Past Medical History Surgeries: Yes (ULNAR NERVE, BREAST BIOPSY, d&c) Breast, Gallbladder, Orthopedic, Tonsillectomy Respiratory: Yes Asthma Currently Using CPAP: No Currently Using BIPAP: No Cardiac: Yes Hypertension, Irregular Heartbeat Neurological: Yes Headaches /Migraines Reproductive Disorders: No Genitourinary: No Gastrointestinal: No Musculoskeletal: Yes Chronic Back Pain Endocrine: No HEENT: No Cancer: No Psychosocial: Yes ADD/ADHD, Anxiety, Suicide Attempts, Depression Integumentary: No Blood Disorders: No Adverse Reaction/Blood Tranf: No Family Medical History Family history: Cardiovascular disease 03 FATHER (55 ) Family history: Hypertension 03 FATHER, Onset:55 Heart disease 03 FATHER, Onset:55 History of - respiratory disease 03 FATHER, Onset:50 Hypercholesterolemia 03 FATHER, Onset:55 No Family History of: Abdominal aortic aneurysm [place]'s disease Alcoholism Aphasia Cancer Cancer of colon Cataract Chest pain Congenital heart disease Congestive heart failure Cystic fibrosis Dementia Dysphagia Family history: Allergy Family history: Alzheimer's disease Family history: Arthritis Family history: Asthma Family history: Breast disease Family history: Coronary thrombosis Family history: Diabetes mellitus Family history: Gastrointestinal disease Family history: Glaucoma Family history: Osteoporosis Family history: Thyroid disorder Headache Hearing loss Hereditary disease History of - anemia History of - disorder History of drug abuse Human immunodeficiency virus (HIV) seropositivity Infertile Kidney disease Malignant neoplasm of lung Myocardial infarction Parkinson's disease Prostate cancer Psychotic disorder Seizure disorder Stroke Tuberculosis Visual impairment Physical Exam Vital Signs Vital Signs - First Documented 04/09/21 04/10/21 23:30 00:49 Temp 36.5 Pulse 65 Resp 18 B/P (MAP) 155/86 (109) Pulse Ox 100 O2 Delivery Room Air Capillary Refill : Less Than 3 Seconds Height, Weight, BMI Height: 5'2.00" Weight: 140lbs. 12.8oz. 63.721328eo; 24.00 BMI Method:Stated General Appearance: WD/WN, no apparent distress Feet: left foot other (LEFT HEEL WITH 3 CM LINEAR LACERATION. NO ACTIVE BLEEDING AT THIS TIME. MOTOR/SENSORY/VASCULAR INTACT. ) Neurologic/Tendon: normal sensation, normal motor functions, normal tendon functions Neurologic/Psychiatric: no motor/sensory deficits, alert, normal mood/affect Procedures/Interventions Other Wound Location LEFT HEEL Wound Length (cm): 3 Wound's Depth, Shape: linear, sub Q Wound Explored: clean Irrigated w/ Saline (ccs): 250 Betadine Prep?: No (BETASEPT) Anesthesia: Lidocaine w/ Epi (1%) Suture: Ethlion Suture Size: 3-0 Number of Sutures: 6 Layer Closure?: 1 Sterile Dressing Applied?: Yes Splinting and Joint Reduction : Splints: Post Op Shoe Progress/Results/Core Measures Results/Orders My Orders Orders - VARUN LAKE DO Wound Dressing-Ed (04/09/21 23:48) Dipht,Pertuss(Acell),Tet Adult (Boostrix (04/10/21 00:00) Lidocaine/Epi 1% 1:100,000 (Xylocaine /E (04/09/21 23:58) Rx-Cephalexin Capsule (Rx-Keflex Capsule (04/10/21 00:32) Post-Op Shoe (04/10/21 00:36) Medications Given in ED Current Medications Medications Dose Ordered Sig/Francisco J Route Start Time Stop Time Status Last Admin Dose Admin Diphtheria/ Tetanus/Acell Pertussis 0.5 ml ONCE ONCE IM 04/10/21 00:00 04/10/21 00:01 DC 04/09/21 23:55 0.5 ML Lidocaine/ Epinephrine 20 ml STK-MED ONCE .ROUTE 04/09/21 23:58 04/10/21 00:00 DC 04/10/21 00:16 20 ML Vital Signs/I&O 04/09/21 04/10/21 23:30 00:49 Temp 36.5 36.5 Pulse 65 65 Resp 18 18 B/P (MAP) 155/86 (109) 145/82 (109) Pulse Ox 100 O2 Delivery Room Air Blood Pressure Mean: 109 Departure Impression Primary Impression: Laceration of left heel Additional Impression: Qtayasscgt-iuqxtdgvy-nhinqph (DPT) vaccination administered at current visit Disposition: HOME, SELF-CARE Condition: Stable Departure-Patient Inst. Decision time for Depature: 00:34 Referrals: [facility] (PCP/Family) Primary Care Physician Patient Instructions: Diphtheria and Tetanus Toxoids, and Acellular Pertussis Vaccine, Laceration Repair With Stitches (DC) Add. Discharge Instructions: LEAVE DRESSING IN PLACE FOR 24 HOURS, THEN CLEAN WOUND TWICE A DAY WITH SOAP AND WATER ON A Q-TIP AND APPLY FRESH DRESSING OTHERWISE KEEP CLEAN AND DRY WEAR POST OP SHOE NEEDED FOR COMFORT SUTURES OUT IN 10-14 DAYS--RETURN TO ER FOR REMOVAL TYLENOL AND MOTRIN NEEDED FOR PAIN FOLLOW UP WITH YOUR DR NEEDED All discharge instructions reviewed with patient and/or family. Voiced understanding. Scripts Cephalexin (Cephalexin) 500 Mg Tablet 500 MG PO QID, #40 TAB Prov: VARUN LAKE DO 04/10/21 VARUN LAKE DO Apr 10, 2021 00:36
[2021-04-10 00:49] VITALS: BP 145/82
== END 2021-04-10 00:49 | disposition home or self-care (01) ==
LOC: EDUNIT# 22:52 → ER 22:55
DX: S91.312A Laceration without foreign body, left foot, initial encounter (principal); I10 Essential (primary) hypertension; J45.909 Unspecified asthma, uncomplicated; Z23 Encounter for immunization; W26.0XXA Contact with knife, initial encounter
CPT/HCPCS: 12002; 90715

== ENCOUNTER 2021-04-19 16:07 | Emergency (ER) | payer BC ==
[~2021-04-19] VITALS: Ht 157.5 cm; Wt 59.1 kg
[~2021-04-19 16:07] MED LIST changes: +CEPH500T PO
[2021-04-19 16:13] VITALS: BP 145/83
== END 2021-04-19 16:31 | disposition home or self-care (01) ==
LOC: EDUNIT# 16:07 → ER 16:08
DX: Z48.02 Encounter for removal of sutures (principal)